=== PATIENT | female | born 1985 | race Caucasian/White ===

== ENCOUNTER 2017-03-17 18:11 | Emergency (ER) | payer OTHER ==
[~2017-03-17] VITALS: Ht 165.1 cm; Wt 117.2 kg
[2017-03-17 18:15] VITALS: TEMP 36.6; Ht 165.1 cm; Wt 117.2 kg
[2017-03-17] MEDS ORDERED: MoRPHine SULFATE 10 MG/ML CARP/VIAL IV STA (18:27)
[2017-03-17] MEDS ORDERED: ONDANSETRON INJ 2 MG/ML 2 ML VIAL IV STA (18:27)
[2017-03-17] MEDS ORDERED: SODIUM CHLORIDE 0.9% 1000ML 1,000 ML IV ONE (18:30)
[2017-03-17] MEDS ORDERED: BUPRTAB PO (18:48)
[2017-03-17 19:21] LABS: INR 0.9 (0.9-1.1); PARTIAL THROMBOPLASTIN RATIO 1.1
[2017-03-17 19:24] LABS: BASO % 0.5 %; BASO ABS # 0.04 K/uL (0-0.2); COMPLETE YES; EOS % 2.2 %; IG% 0.1 %; LYMPH % 28.2 %; LYMPH ABS # 2.22 K/uL (1.2-3.4); MEAN CELL VOLUME 85.2 fL (80-100); MEAN CORPUSCULAR HEMOGLOBIN 28.4 pg (25-34); MEAN CORPUSCULAR HGB CONC 33.3 g/dl (32-36); MEAN PLATELET VOLUME 10.8 fL (7.4-10.4); MONO % 5.7 %; NEUT % 63.3 %; PLATELET COUNT 212 K/uL (130-400); RED BLOOD COUNT 4.58 M/uL (4.2-5.4); WHITE BLOOD COUNT 7.88 K/uL (4.8-10.8)
[2017-03-17 19:35] LABS: BUN/CREATININE RATIO 11.6 (10-20); CALCIUM 9.1 mg/dl (8.5-10.1); CREATININE 0.7 mg/dl (0.60-1.20); MAGNESIUM 2.2 mg/dl (1.8-2.4); POTASSIUM 3.7 mmol/L (3.5-5.1)
[2017-03-17 19:36] LABS: URINE APPEARANCE CLEAR (CLEAR); URINE BILIRUBIN NEG (NEG); URINE COLOR YELLOW; URINE NITRITE NEG (NEG); URINE PH 6.5 (4.5-7.5); URINE SPECIFIC GRAVITY 1.022 (1.000-1.030); UROBILINOGEN NEG (NEG); ZZUR CULT IF INDIC CLEAN CATCH NO
[2017-03-17 19:37] LABS: MANUAL MICROSCOPIC REQUIRED? NO; REVIEW REQ? NO
--- NOTE | 2017-03-17 19:37 | DIAGNOSTIC IMAGING REPORT ---
HEAD CT NONCONTRAST CT DOSE: 537.48 mGy.cm HISTORY: Worst headache of life TECHNIQUE: Multiaxial CT images of the head were performed without the use of intravenous contrast. Comparison: None. Findings: Mild mucosal thickening of the sphenoid sinuses. Minimal mucosal thickening of the maxillary and ethmoid sinuses. The calvarium and skull base are intact. The ventricles and sulci are within normal limits. There is no mass, hematoma, midline shift, or acute infarct. Impression: Mild chronic sinus change. Negative brain. Electronically signed by: Moe Delgadillo M.D. 03/17/2017 7:36 PM Dictated Date/Time: 03/17/2017 7:35 PM
[2017-03-17 19:46] LABS: THYROID STIMULATING HORMONE 0.476 uIu/ml (0.300-4.500)
[2017-03-17 20:42] LABS: LYME DISEASE AB IGG NEG (NEG); LYME DISEASE AB IGM NEG (NEG)
[2017-03-17] MEDS ORDERED: HYDROmorphone INJ 1 MG/ML SYR IV STA (20:56)
[2017-03-17] MEDS ORDERED: ONDANSETRON HOME PACK 4MG OD TAB PO ONE (21:30)
[2017-03-17] MEDS ORDERED: OXYCODONE IR HOME PACK PO ONE (21:30)
[2017-03-17 21:48] VITALS: BP 146/95; PULSE 80; O2SAT 97
--- NOTE | 2017-03-18 18:58 | EMERGENCY ROOM VISIT NOTE ---
History First contact with patient: 18:17 Chief Complaint: HEADACHE Stated Complaint: SEVERE HEADACHE, DIZZINESS, NAUSEA History of Present Illness The patient is a 31 year old female who presents to the Emergency Room with complaints of slowly worsening headache with dizziness and nausea over the past 36 hours. The patient states she has a history of headaches, but she has not had one to this extent in the past. She does not follow with neurology, and her symptoms usually improve with [id number] Excedrin Migraine. She attempted this without relief. She states that her headache began after intercourse yesterday, and has slowly progressed. She was able to get some sleep last night. The patient does not have neck pain or vision changes. No fevers or chills. No injury or trauma. The patient rates her current discomfort an 8/10. She is not photophobic. No aura. She does not take blood thinners or aspirin on a regular basis. Review of Systems More than 10 systems were reviewed and otherwise negative with the exception of history of present illness. Past Medical/Surgical History No chronic medical disease Family History No pertinent family history Social History Housing Status: lives with family Current/Historical Medications Scheduled Bupropion Hcl (Wellbutrin Xl), 150 MG PO DAILY Allergies Coded Allergies: No Known Allergies (Unverified , 03/17/17) Physical Exam Vital Signs Date Time Temp Pulse Resp B/P (MAP) Pulse Ox O2 Delivery O2 Flow Rate FiO2 03/17/17 21:48 80 16 146/95 97 Room Air 03/17/17 20:00 72 17 128/82 99 Room Air 03/17/17 18:15 36.6 85 18 197/129 97 Room Air Pain Rating (0-10): 3.0 Physical Exam VITALS: Vitals are noted on the nurse's note and reviewed by myself. Vital signs stable. GENERAL: Well-developed, well-nourished, white female, who is in no acute distress and resting comfortably. Patient is cooperative with the examination. HEAD: Normocephalic atraumatic. NECK: Supple without nuchal rigidity. No lymphadenopathy. No thyromegaly. Cervical spine is nontender. No meningismus HEART: Regular rate and rhythm without murmurs gallops or rubs. LUNGS: Clear to auscultation bilaterally without wheezes, rales or rhonchi. No retractions or accessory muscle use. ABDOMEN: Positive normal bowel sounds x 4. Soft, nontender, without masses or organomegaly. No guarding or rebound tenderness. MUSCULOSKELETAL: No muscle atrophy, erythema, or edema noted. Full range of motion without joint tenderness in all extremities. No tenderness to palpation. Normal gait. Strength 5/5 throughout. NEURO: Patient was alert and oriented to person place and time. CN II through XII grossly intact. Deep tendon reflexes 2+ throughout. No focal neurological deficits SKIN: The skin was without rashes, erythema, edema, or bruising. Capillary reflex less than 2 seconds. Medical Decision & Procedures ER Provider Diagnostic Interpretation: HEAD CT NONCONTRAST CT DOSE: 537.48 mGy.cm HISTORY: Worst headache of life TECHNIQUE: Multiaxial CT images of the head were performed without the use of intravenous contrast. Comparison: None. Findings: Mild mucosal thickening of the sphenoid sinuses. Minimal mucosal thickening of the maxillary and ethmoid sinuses. The calvarium and skull base are intact. The ventricles and sulci are within normal limits. There is no mass, hematoma, midline shift, or acute infarct. Impression: Mild chronic sinus change. Negative brain. Laboratory Results 03/17/17 18:50 Red Blood Count 4.58, Mean Corpuscular Volume 85.2, Mean Corpuscular Hemoglobin 28.4, Mean Corpuscular Hemoglobin Concent 33.3, Mean Platelet Volume 10.8, Neutrophils (%) (Auto) 63.3, Lymphocytes (%) (Auto) 28.2, Monocytes (%) (Auto) 5.7, Eosinophils (%) (Auto) 2.2, Basophils (%) (Auto) 0.5, Neutrophils # (Auto) 4.99, Lymphocytes # (Auto) 2.22, Monocytes # (Auto) 0.45, Eosinophils # (Auto) 0.17, Basophils # (Auto) 0.04 03/17/17 18:50 Test 03/17/17 18:50 White Blood Count 7.88 K/uL (4.8-10.8) Red Blood Count 4.58 M/uL (4.2-5.4) Hemoglobin 13.0 g/dL (12.0-16.0) Hematocrit 39.0 % (37-47) Mean Corpuscular Volume 85.2 fL (80-100) Mean Corpuscular Hemoglobin 28.4 pg (25-34) Mean Corpuscular Hemoglobin Concent 33.3 g/dl (32-36) Platelet Count 212 K/uL (130-400) Mean Platelet Volume 10.8 fL (7.4-10.4) Neutrophils (%) (Auto) 63.3 % Lymphocytes (%) (Auto) 28.2 % Monocytes (%) (Auto) 5.7 % Eosinophils (%) (Auto) 2.2 % Basophils (%) (Auto) 0.5 % Neutrophils # (Auto) 4.99 K/uL (1.4-6.5) Lymphocytes # (Auto) 2.22 K/uL (1.2-3.4) Monocytes # (Auto) 0.45 K/uL (0.11-0.59) Eosinophils # (Auto) 0.17 K/uL (0-0.5) Basophils # (Auto) 0.04 K/uL (0-0.2) RDW Standard Deviation 40.8 fL (36.4-46.3) RDW Coefficient of Variation 13.2 % (11.5-14.5) Immature Granulocyte % (Auto) 0.1 % Immature Granulocyte # (Auto) 0.01 K/uL (0.00-0.02) Prothrombin Time 10.0 SECONDS (9.0-12.0) Prothromb Time International Ratio 0.9 (0.9-1.1) Activated Partial Thromboplast Time 27.3 SECONDS (21.0-31.0) Partial Thromboplastin Ratio 1.1 Urine Color YELLOW Urine Appearance CLEAR (CLEAR) Urine pH 6.5 (4.5-7.5) Urine Specific [place] 1.022 (1.000-1.030) Urine Protein NEG (NEG) Urine Glucose (UA) NEG (NEG) Urine Ketones TRACE (NEG) Urine Occult Blood NEG (NEG) Urine Nitrite NEG (NEG) Urine Bilirubin NEG (NEG) Urine Urobilinogen NEG (NEG) Urine Leukocyte Esterase NEG (NEG) Urine Test NEG (NEG) Anion Gap 8.0 mmol/L (3-11) Est Creatinine Clear Calc Drug Dose 151.8 ml/min Estimated GFR () 135.7 Estimated GFR (Non- 117.1 BUN/Creatinine Ratio 11.6 (10-20) Calcium Level 9.1 mg/dl (8.5-10.1) Magnesium Level 2.2 mg/dl (1.8-2.4) Total Bilirubin 0.4 mg/dl (0.2-1) Aspartate Amino Transf (AST/SGOT) 17 U/L (15-37) Alanine Aminotransferase (ALT/SGPT) 26 U/L (12-78) Alkaline Phosphatase 84 U/L (45-117) Total Protein 7.9 gm/dl (6.4-8.2) Albumin 4.0 gm/dl (3.4-5.0) Globulin 3.9 gm/dl (2.5-4.0) Albumin/Globulin Ratio 1.0 (0.9-2) Thyroid Stimulating Hormone (TSH) 0.476 uIu/ml (0.300-4.500) Lyme Disease IgG Antibody NEG (NEG) Lyme Disease IgM Antibody NEG (NEG) Medications Administered Medications (Trade) Dose Ordered Sig/[place] Route Start Time Stop Time Status Last Admin Dose Admin Sodium Chloride 1,000 ml @ 999 mls/hr Q1H1M ONCE IV 03/17/17 18:30 03/17/17 19:30 DC 03/17/17 18:57 999 MLS/HR Morphine Sulfate (MoRPHine SULFATE INJ) 8 mg NOW STAT IV 03/17/17 18:27 03/17/17 18:29 DC 03/17/17 18:57 8 MG Ondansetron HCl (Zofran Inj) 4 mg NOW STAT IV 03/17/17 18:27 03/17/17 18:30 DC 03/17/17 18:57 4 MG Hydromorphone HCl (Dilaudid Inj) 1 mg NOW STAT IV 03/17/17 20:56 03/17/17 20:57 DC 03/17/17 21:01 1 MG Oxycodone HCl (Roxicodone Immediate Rel 5MG Home Pack) 1 homepack UD ONCE PO 03/17/17 21:30 03/17/17 21:31 DC 03/17/17 21:30 1 HOMEPACK Ondansetron HCl (ZOFRAN ODT 4MG Home Pack) 1 homepack UD ONCE PO 03/17/17 21:30 03/17/17 21:31 DC 03/17/17 21:30 1 HOMEPACK ED Course Physical exam and history were performed. Nursing notes and EMR were reviewed. Patient appears to have a slowly worsening migraine headache over the past 36 hours. The patient has a history of headaches in the past, but she states she has not had one this severe previously. She does not have findings consistent with meningitis or encephalitis. IV access was established and labs were obtained. Review of EMR shows the patient has not been seen at this facility previously. She reports no previous imaging of her head. Because of this he CT scan was performed. The patient was hydrated and medicated as above. The patient does not have a significant elevated white blood cell count, gross anemia, bandemia, or significant electrolyte imbalance. TSH shows euthyroid. Lyme is negative. Urine was without obvious infection. Magnesium was normal. The patient CT scan does not show evidence of acute findings. After medication the patient had significant improvement of her symptoms, rating her pain a 3/10. She was able to rest comfortably in her emergency department bed. I did discuss the possibility of needing a lumbar puncture as she is describing this as the worst headache of her life. After thorough education, the patient elected to avoid lumbar puncture at this time as she was improved. Her symptoms are slowly nature and she does have a negative CT scan, and I feel that this is reasonable. I explained that if her symptoms persisted we would certainly be willing to perform this in the near future. Overall the patient appears stable for discharge home. I will give her a home pack of oxycodone to help her for the rest of the day. She will need to follow with her primary care physician for further care and management. She was otherwise invited back to the ER with any new, worsening, or concerning symptoms. The patient voiced understanding of this plan and was discharged home under the care of her who is acting as the forklift driver today. The chart was completed utilizing [employer] Speech Voice Recognition Software. Grammatical errors, random word insertions, pronoun errors, and incomplete sentences are an occasional consequence of this system due to software limitations, ambient noise, and hardware issues. Any formal questions or concerns about the content, text, or information contained within the body of this dictation should be directly addressed to the provider for clarification. . Medical Decision The differential diagnosis includes, but is not limited to: acute intracranial bleed, meningitis, encephalitis, mass or mass effect, sinusitis, infection, tumor, headache, temporal arteritis, dissection, aneurysm, and carbon monoxide exposure, and migraine. Impression Primary Impression: Headache Departure Information Dispostion Home / Self-Care Condition FAIR Referrals Larry Delaney D.O. (PCP) Forms HOME CARE DOCUMENTATION FORM, IMPORTANT VISIT INFORMATION Patient Instructions My [facility] Additional Instructions You were seen and evaluated today on an emergency basis only. This is not a substitute for, or an effort to provide, complete comprehensive medical care. It is not possible to recognize and treat all injuries or illnesses in a single emergency department visit. For this reason it is recommended that you followup with your primary care physician or neurologist this week for ongoing care and evaluation. DO NOT drive, drink alcohol, operate machinery, or perform dangerous activities today. You were given medications in the ER that can affect your ability to safely function or operate a vehicle. Oxycodone (OxyIR) 5mg (homepack): Take ONE pill every SIX hours for breakthrough pain. Avoid alcohol, operating machinery or dangerous equipment, working on ladders or roofs, DRIVING, or situations where being under the influence may be dangerous. It is recommended to use an [id number] stool softener such as Colace, 100mg twice daily while taking this medication to avoid constipation. Zofran 1 tablet every 6 hrs as needed for nausea. Rest today in a quiet, peaceful, dark environment and get a full 8-10 hrs of sleep tonight. Avoid loud noises, smoke/smoking, alcohol, bright lights, stress, or physical exertion today to minimize the chance the headache may return. Continue current medications. Ibuprofen(Motrin, Advil) may be used for fever or pain. Use 600mg every six hours as needed. Take with food. Avoid using more than 2400mg in a 24 hour period. Do not use 2400mg per day for more than three consecutive days without physician direction. Prolonged inappropriate use can lead to stomach upset or ulcers. (AND/OR) Acetaminophen(Tylenol) may be used for fever or pain. Use 1000mg every six hours as needed. Avoid using more than 4000mg in a 24 hour period. Return to the ER for passing out, worsening headache, vision problems, neck stiffness/pain, fevers, vomiting, worsening of your condition, or as needed.
== END 2017-03-17 21:52 | disposition home or self-care (01) ==
LOC: C.EDB 18:12 → C.EDA 21:52
DX: R51 Headache (principal); R42 Dizziness and giddiness

== ENCOUNTER 2025-03-26 13:50 | Observation (INO) ==
--- NOTE | 2025-03-26 14:58 | Emergency Department Note ---
Impression & Plan Atypical chest pain, Upper abdominal pain, History of Irene-en-Y gastric bypass, History of alcohol abuse ED Provider Note Provider: Som Ervin MD CHIEF COMPLAINT: Abdominal pain and vomiting, chest pain shortness of breath, skin discomfort, weakness HISTORY OF PRESENT ILLNESS: Patient is a 39-year-old female reporting history of gastric bypass ~9 years ago at [facility] presenting today stating over last 2 weeks she has not had much of an appetite. Anytime she tries to eat much of anything she gets nauseous and vomits. Maybe a little bit of liquid going down. States some diffuse abdominal discomfort particularly in the upper abdomen towards the left. Developed over the last several days some mid to right upper chest pain rating to the right shoulder and shortness of breath at times. [place] weak and lightheaded this morning but did not syncopized. No significant trauma. This morning also noted that vision in both eyes seems a little bit blurry. States she has a pain discomfort sensation from her chest extending towards her right leg and to her right arm but not her left arm and leg. Not involving the face. No speech issues. Does report she has had histories of alcohol abuse but states she stopped drinking. Has not been able to take her supplements well due to her nausea and vomiting. Zofran at home did help some with the nausea but when the medication wears off nausea returns. States she just feels unwell. No significant sore throat or productive cough or fevers reported. States she did fall several days ago as her left knee gave out on her but denies any significant headache currently. PAST MEDICAL HISTORY: As noted above MEDICATIONS: Reviewed home medications SOCIAL HISTORY: History of alcohol use although states she has stopped (last drink of alcohol this past week), vapes PHYSICAL EXAM: GENERAL: alert and oriented in no acute distress on stretcher mother at bedside Head: normocephalic and atraumatic EYES: No injection, discharge or icterus. PERRL, EOMI. NECK: Trachea midline. Supple. ENT: Mucous membranes pink and moist. LUNGS: Airway patent. No retractions. Breath sounds clear with good air entry bilaterally. HEART: Regular rate and rhythm. No chest wall tenderness ABDOMEN: Soft mild epigastric to left upper quadrant discomfort. SKIN: Acyanotic, warm, dry, without rashes EXTREMITIES: Without swelling, tenderness or deformity NEUROLOGICAL: No focal deficits. No aphasia. No facial droop or slurred speech. Normal strength and tone in the extremities. Sensation to gross touch normal. Ambulatory. EK beats minute normal sinus rhythm. No PVC or PAC. Some nonspecific T wave inversions without acute ST segment elevation or depression QTc 45. CONTINUOUS CARDIAC MONITORING: was ordered and showed a heart rate of 80s to 90s bpm in normal sinus rhythm Patient's laboratory studies and imaging reviewed. Differential includes ACS/cardiac disease, PE, pneumonia, fluid overload, cirrhosis, CVA, meningitis, neuropathy, vitamin deficiency, electrolyte abnormality, appendicitis, ovarian cyst, ovarian torsion, ectopic , infections, diverticulitis, UTI, obstruction, mesenteric ischemia, aortic pathology, inflammatory bowel disease, renal colic, PUD, pancreatitis, biliary pathology, hernia, volvulus, constipation, as well as other pathologies. IMPRESSION/MEDICAL DECISION MAKING: Patient with multiple different complaints. Does not appear in distress and vitals are reassuring here. Certainly concerns given her history of gastric bypass for complication associated with this. Limited records here in chart indicates the patient has followed at [facility] this past year. Case management access to records in the [facility] system. Patient was evidently seen at the emergency department on March 22 there for abdominal pain symptoms more in the lower abdomen. Ultrasound as well as CT imaging with only hepatic steatosis reported. Blood work and D-dimer at that time was reassuring. Given her ongoing symptoms today however we will complete a another CT of her abdomen pelvis as well as complete a CT of her chest to exclude underlying PE or mass given her discomfort in her chest and some shortness of breath. Given that she has some blurry vision although it did not seem focal we will complete a head CT. Bilateral nature does not seem to Primary ophthalmologic issue at this time. No use of contacts or corrective lenses. No other motor weakness or slurred speech appreciable at this time. Low suspicion for CVA. Does not appear meningitic. Given IV fluids, Pepcid, Protonix, Zofran, pain medicine, and thiamine here. Blood work here without any significant anemia or leukocytosis. Borderline hyponatremia 134 and hypokalemia 3.3 with normal renal function creatinine 0.73. Bilirubin elevated 3.2 with an AST of 117 ALT of 41 alkaline phosphatase of 112. Lipase is normal. Negative . B12 level normal. INR 1.2. In comparison to previous blood work from 4 days ago does appear today that AST is improved as well as alkaline phosphatase although total bilirubin has increased from 1.8. Urinalysis without evidence of infection, blood, or significant concentration. CT head and chest without significant acute pathology per radiology. CT abdomen pelvis shows hepatic steatosis with maybe some colitis. Patient still with ongoing nausea and abdominal discomfort after several doses of morphine and a dose of Zofran. Vision is improved. Discussed with patient and mother the findings. Patient states she did have an EGD done beginning of January that did show an ulceration but no active bleeding. Has been taken Protonix by her report. No bloody vomiting or diarrhea reported. Unsure if some of her chest discomfort to upper abdomen may be related to developing esophagitis or other marginal ulceration. Likely no evidence of perforation on imaging. Discussed with her and mother options. Given her significant pain and nausea still further discussion feel it is reasonable to bring her in for observation and possible further GI workup. Colitis findings on abdominal CT no correlate with any diarrheal symptoms the patient's having. Review of records from outside facility on March 22 had imaging also questioning possible colitis but patient does not have a history of IBD and possibly a normal variant. At this point again after discussion we will bring her in for further observation and the hospitalist was contacted. DIAGNOSIS: Chest pain, abdominal pain, nausea and vomiting, history of gastric bypass DISPOSITION: Hospitalist will evaluate Patient was agreeable with this plan. Past Med/Surg History Problem List (Updated 03/26/25 @ 21:24 by Som Ervin M.D.) History of alcohol abuse (Acute) History of Irene-en-Y gastric bypass (Acute) Upper abdominal pain (Acute) Atypical chest pain (Acute) Headache (Acute) Medical History No significant past medical history Surgical History Hx of gastric bypass Family History Other No significant family history Social History Smoking Status: Current every day smoker Preferred Language: Korean Feels Safe at Home: Yes Allergies Allergies Allergy/AdvReac Type Severity Reaction Status Date / Time metoclopramide [From Reglan] AdvReac Intermediate panic Unverified 11/22/24 16:25 attacks Home Meds Home Medications Medication Instructions Recorded Confirmed multivitamin 1 tab PO DAILY 06/03/18 03/26/25 alprazolam 0.25 mg tablet 0.25 mg PO DAILY PRN Other 11/22/24 03/26/25 furosemide 20 mg tablet 20 mg PO DAILY PRN Fluid Retention 11/22/24 03/26/25 metoprolol succinate 25 mg 25 mg PO DAILY 11/22/24 03/26/25 tablet,extended release 24 hr pantoprazole 20 mg tablet,delayed 20 mg PO DAILY 11/22/24 03/26/25 release sucralfate 1 gram tablet 1 g PO TID 11/22/24 03/26/25 Previous Rx's Medication Instructions Recorded lidocaine 5 % topical patch 1 patch topical DAILY PRN pain #15 11/22/24 ea Results & Data (ED) Vital Signs Vital Signs - 24 hr 03/26/25 13:52 03/26/25 14:28 03/26/25 15:21 Temperature 36.8 C Temperature Source Temporal Artery Scan Pulse Rate 103 H 79 84 Pulse Rate [Apical] Pulse Rate [Finger] Pulse Rhythm [Finger] Pulse Strength [Finger] Respiratory Rate 20 Respiratory Effort / Characteristics Non-Labored Spontaneous Respiratory Depth Normal Respiratory Pattern Blood Pressure 123/79 Blood Pressure [Left Arm] Blood Pressure Mean 93 Blood Pressure Mean [Left Arm] Blood Pressure Position [Left Arm] Pulse Oximetry 100 100 Oxygen Delivery Method Room Air Room Air Sepsis Recent Fever Within 48 Hours No Sepsis New/Unexplained Change in Mental Status N/A Sepsis Action Taken by Nursing No Action Required 03/26/25 15:21 03/26/25 17:04 03/26/25 18:23 Temperature Temperature Source Pulse Rate 73 Pulse Rate [Apical] Pulse Rate [Finger] 86 69 Pulse Rhythm [Finger] Regular Pulse Strength [Finger] Normal Respiratory Rate 18 16 Respiratory Effort / Characteristics Non-Labored Spontaneous Non-Labored Spontaneous Respiratory Depth Normal Normal Respiratory Pattern Blood Pressure Blood Pressure [Left Arm] 115/78 113/88 Blood Pressure Mean Blood Pressure Mean [Left Arm] 90 96 Blood Pressure Position [Left Arm] Pulse Oximetry 100 100 Oxygen Delivery Method Room Air Room Air Sepsis Recent Fever Within 48 Hours Sepsis New/Unexplained Change in Mental Status Sepsis Action Taken by Nursing 03/26/25 19:00 03/26/25 21:00 Temperature Temperature Source Pulse Rate Pulse Rate [Apical] 86 76 Pulse Rate [Finger] Pulse Rhythm [Finger] Pulse Strength [Finger] Respiratory Rate 16 16 Respiratory Effort / Characteristics Non-Labored Spontaneous Non-Labored Spontaneous Respiratory Depth Normal Normal Respiratory Pattern Regular Regular Blood Pressure Blood Pressure [Left Arm] 107/66 114/72 Blood Pressure Mean Blood Pressure Mean [Left Arm] 79 86 Blood Pressure Position [Left Arm] Semi-fowlers Pulse Oximetry 98 94 Oxygen Delivery Method Room Air Room Air Sepsis Recent Fever Within 48 Hours Sepsis New/Unexplained Change in Mental Status Sepsis Action Taken by Nursing Laboratory Data 03/26/25 14:06 03/26/25 14:06 Lab Results 03/26/25 03/26/25 Range/Units 14: 16:42 WBC 9.60 (4.8-10.8) K/ul RBC 3.38 L (4.20-5.40) M/uL Hgb 12.1 (12.0-16.0) g/dl Hct 34.9 L (37.0-47.0) % MCV 103.3 H (80.0-100.0) fL MCH 35.8 H (25.0-34.0) pg MCHC 34.7 (32.0-36.0) g/dL RDW Std Deviation 63.0 H (36.4-46.3) fL RDW Coeff of Romain 16.5 H (11.5-14.5) % Plt Count 149 (130-400) K/uL MPV 10.8 (9.4-12.4) fL Immature Gran % (Auto) 0.2 % Neut % (Auto) 74.7 % Lymph % (Auto) 16.4 % [place] % (Auto) 7.9 % Eos % (Auto) 0.3 % Baso % (Auto) 0.5 % Neut # (Auto) 7.17 H (1.40-6.50) K/uL Lymph # (Auto) 1.57 (1.20-3.40) K/uL [place] # (Auto) 0.76 H (0.11-0.59) K/uL Eos # (Auto) 0.03 (0.00-0.50) K/uL Baso # (Auto) 0.05 (0.00-0.20) K/uL Immature Gran # (Auto) 0.02 (0.01-0.20) K/uL PT 12.8 H (9.0-12.0) Seconds INR 1.2 H (0.9-1.1) Sodium 134 L (136-145) mmol/L Potassium 3.3 L (3.5-5.1) mmol/L Chloride 96 L (98-107) mmol/L Carbon Dioxide 26 (21-32) mmol/L Anion Gap 12 H (3-11) BUN 6 (6-23) mg/dl Creatinine 0.73 (0.6-1.2) mg/dl Est Cr Clr Drug Dosing 111.1 ml/min eGFR 108.56 BUN/Creatinine Ratio 8.2 L (10-20) Glucose 122 H (70-99(Fasting)) mg/dl Calcium 8.7 (8.6-10.3) mg/dl Magnesium 2.0 (1.7-2.4) mg/dl Total Bilirubin 3.2 H (0.2-1.0) mg/dl AST 117 H (13-39) U/L ALT 41 (7-52) U/L Alkaline Phosphatase 112 H (34-104) U/L Troponin I High Sens 4.3 (0-14) pg/ml Total Protein 6.4 (6.0-8.3) gm/dl Albumin 2.7 L (3.4-5.0) gm/dl Globulin 3.7 (2.5-4.0) gm/dl Albumin/Globulin Ratio 0.7 L (0.9-2) Lipase 41 (11-82) U/L Vitamin B12 887 (180-914) pg/ml HCG, Qual Negative (Negative) Urine Color Dark Yellow Urine Appearance Clear (Clear) Urine pH 7.0 (4.5-7.5) Ur Specific [place] 1.009 (1.000-1.030) Urine Protein Negative (Negative) Urine Glucose (UA) Negative (Negative) Urine Ketones Negative (Negative) Urine Blood Negative (Negative) Urine Nitrite Negative (Negative) Urine Bilirubin 1+ H (Negative) Urine Urobilinogen Negative (Negative) Ur Leukocyte Esterase Trace H (Negative) Urine WBC (Auto) 0-5 (0-5) /hpf Urine RBC (Auto) 0-2 (0-2) /hpf U Hyaline Cast (Auto) 0-2 (0-2) /lpf U Epithel Cells (Auto) 0-2 (0-2) /hpf Urine Bacteria (Auto) None Seen (None Seen) Urine Comment Administered Medications Discontinued Medications Hydromorphone HCl (Hydromorphone Inj 0.5 Mg/0.5 Ml Syr) 0.5 mg IV NOW STA Stop: 03/26/25 19:07 Last Admin: 03/26/25 19:35 Dose: 0.5 mg Documented By: EDWARD Sodium Chloride (Nss) 1,000 mls @ 999 mls/hr IV .Q1H1M STA Stop: 03/26/25 15:53 Last Infusion: 03/26/25 17:28 Dose: Infused Documented By: Admin: 03/26/25 15:22 Dose: 999 mls/hr Documented By: MARLINE Thiamine HCl 100 mg/ Syringe 10 mls @ 2 mls/min IV NOW STA Stop: 03/26/25 14:58 Last Admin: 03/26/25 15:33 Dose: 2 mls/min Documented By: MARLINE Famotidine (Pepcid 20mg Iv Push) 20 mg in 5 mls @ 2.5 mls/min IV NOW STA Stop: 03/26/25 14:55 Last Admin: 03/26/25 15:30 Dose: 2.5 mls/min Documented By: MARLINE Pantoprazole Sodium (Protonix) 40 mg in 10 mls @ 5 mls/min IV NOW ONE Stop: 03/26/25 14:55 Last Admin: 03/26/25 15:28 Dose: 5 mls/min Documented By: MARLINE Ioversol (Optiray 320 125ml) 115 ml IV ONCE ONE Stop: 03/26/25 16:25 Last Admin: 03/26/25 16:24 Dose: 115 ml Documented By: MICHAEL Morphine Sulfate (Morphine Sulfate 4 Mg/Ml 1 Ml Carp\Vial) 4 mg IV NOW STA Stop: 03/26/25 14:54 Last Admin: 03/26/25 15:25 Dose: 4 mg Documented By: MARLINE Morphine Sulfate (Morphine Sulfate 4 Mg/Ml 1 Ml Carp\Vial) 4 mg IV NOW STA Stop: 03/26/25 16:59 Last Admin: 03/26/25 17:07 Dose: 4 mg Documented By: MARLINE Ondansetron HCl (Ondansetron Inj 2 Mg/Ml 2 Ml Vial) 4 mg IV NOW STA Stop: 03/26/25 14:54 Last Admin: 03/26/25 15:24 Dose: 4 mg Documented By: MARLINE Ondansetron HCl (Ondansetron Inj 2 Mg/Ml 2 Ml Vial) 4 mg IV NOW STA Stop: 03/26/25 19:07 Last Admin: 03/26/25 19:32 Dose: 4 mg Documented By: EMB Imaging Data Radiologist's Impression: Abdomen/Pelvis CT 03/26/25 14:53 EXAMINATION: CT of the abdomen and pelvis performed after the administration of IV contrast. TECHNIQUE: Helical CT images from the lung bases through the symphysis pubis were obtained with contrast. Coronal and sagittal reformatted images were generated at a workstation for further assessment. Dose reduction techniques were achieved by using automatic exposure control and/or adjustment of mA and/or kV according to patient size and/or use of iterative reconstruction technique. HISTORY: Pulmonary embolism. Chest pain and abdominal pain. COMPARISON: June 03, 2018. 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 Lung windows demonstrate clear included pulmonary bases. Soft tissue windows demonstrate slight heterogeneous but predominantly decreased attenuation of the liver. No appreciated mass or ductal dilatation. Cholecystectomy changes. Radiopaque staple line consistent with gastric bypass changes. No appreciated complication at these levels. Likely physiologic cyst right ovary. Mild air stool levels large bowel. Radiopaque density within the proximal descending large bowel likely representing residual radiopaque medicinal debris. Decreased attenuation submucosal region of the proximal large bowel. This is decompressed. Submucosal edema not excluded. No discrete mass or obstruction. Appendix is within normal limits. Nonspecific prominent gas distended loops of small bowel. Suspect transient process. Remaining solid and hollow organs of the abdomen and pelvis are within normal limits. No free air or free fluid. Bone windows demonstrate no acute osseous process. IMPRESSION: 1. Findings worrisome for proximal colitis. Etiology uncertain. No discrete mass or obstruction. 2. Uncomplicated appearing gastric bypass changes. 3. Question diffuse liver steatosis. Please see above for details. Electronically signed by Navi Rooney 03-26-2025 5:43 PM Chest CTA 03/26/25 14:53 Exam: CT angiogram chest with pulmonary embolus protocol Reason for exam: Pulmonary embolus with chest pain and abdominal pain Previous studies: Chest radiograph 11/22/2024 FINDINGS: There is good opacification of the pulmonary arteries. Persistent filling defect to indicate embolus is seen on either side at this time. Aorta shows minimal atherosclerotic plaquing without the evidence suggesting dissection or significant aneurysm at the examined levels. No significant coronary artery calcification seen at this time. No mediastinal mass or adenopathy. Visualized lung zones show some minor linear atelectasis/fibrosis in the right middle lobe but are otherwise free of active infiltrate or edema. No pleural effusion or pneumothorax is noted. There is diffuse fatty infiltrate in the liver which is enlarged. Clips from cholecystectomy are noted. IMPRESSION: 1. Negative for pulmonary embolus. 2. Negative for aortic dissection or aneurysm. 3. Essentially clear lung zones. 4. Hepatomegaly with diffuse fatty infiltration in the liver. Electronically signed by Larry Junior 03-26-2025 6:[address] 03/26/25 14:53 Exam: CT head brain without contrast Reason for exam: Vision changes Comparison studies: 03/17/2017 FINDINGS: No intracranial mass, hemorrhage or edema is evident at this time. No midline shift, ventriculomegaly or extra-axial blood/fluid collection is seen. The mastoids and visualized paranasal sinuses show small retention cyst in the right aspect of the sphenoid bone are otherwise clear. This was also present on the previous study. Bony calvarium otherwise intact. IMPRESSION: 1. Negative for active intracranial abnormality on unenhanced head CT study. 2. Retention cyst sphenoid sinus. Electronically signed by Larry Junior 03-26-2025 6:36 PM Discharge Plan Visit Data Chief Complaint: Chest Pain Stated Complaint: CAN'T EAT FOR 2 WEEKS,CHEST PAIN SOB,VISION ED Provider: Som Ervin Discharge Problem: Atypical chest pain, Upper abdominal pain, History of Irene-en-Y gastric bypass, History of alcohol abuse Patient Disposition: Being Evaluated by Hospitalist Condition: Fair Forms Stand Alone Forms: My [facility] Prescriptions Prescriptions: No Action multivitamin Tablet 1 tab PO DAILY sucralfate 1 gram tablet 1 g PO TID pantoprazole 20 mg tablet,delayed release (DR/EC) 20 mg PO DAILY alprazolam 0.25 mg tablet 0.25 mg PO DAILY PRN (Reason: Other) furosemide 20 mg tablet 20 mg PO DAILY PRN (Reason: Fluid Retention) metoprolol succinate 25 mg tablet extended release 24 hr 25 mg PO DAILY lidocaine 5 % adhesive patch,medicated 1 patch TOP DAILY PRN (Reason: pain) Qty: 15 0RF Rx Instructions: leave on most painful area for 12 hrs Referrals Referrals: Brigitte Monteiro PA-C [Primary Care Provider] -
[2025-03-26 15:07] LABS: Hematocrit (blood only) 34.9 % (37.0-47.0); Hemoglobin 12.1 g/dl (12.0-16.0); Immature Granulocytes # (auto) 0.02 K/uL (0.01-0.20); Immature Granulocytes % (auto) 0.2 %; Mean Corpuscular Hemoglobin 35.8 pg (25.0-34.0); Mean Corpuscular Volume 103.3 fL (80.0-100.0); Platelet Count 149 K/uL (130-400); RDW Standard Deviation 63.0 fL (36.4-46.3); Red Blood Count 3.38 M/uL (4.20-5.40); White Blood Count 9.60 K/ul (4.8-10.8)
[2025-03-26 15:19] LABS: Pregnancy Test, Serum Negative (Negative)
[2025-03-26] MEDS: SODIUM CHLORIDE 0.9% 1,000 ML IV STA (15:22)
[2025-03-26] MEDS: ONDANSETRON INJ 2 MG/ML 2 ML VIAL IV STA ×2 (15:24→19:32)
[2025-03-26] MEDS: MoRPHine SULFATE 4 MG/ML 1 ML CARP\\VIAL IV STA ×2 (15:25→17:07)
[2025-03-26] MEDS: PANTOprazole 40 MG/10 ML SYR IV ONE (15:28)
[2025-03-26] MEDS: FAMOTIDINE 20MG IV PUSH 20 MG/5 ML SYR IV STA (15:30)
[2025-03-26] MEDS: THIAMINE HCL 100 MG in SYRINGE 9 ML IV STA (15:33)
[2025-03-26 15:41] LABS: INR 1.2 (0.9-1.1); Prothrombin Time 12.8 Seconds (9.0-12.0)
[2025-03-26 15:43] LABS: Anion Gap 12.0 (3-11); Bilirubin,Total 3.2 mg/dl (0.2-1.0); Calcium 8.7 mg/dl (8.6-10.3); Carbon Dioxide 26.0 mmol/L (21-32); Chloride 96.0 mmol/L (98-107); Magnesium 2.0 mg/dl (1.7-2.4); Potassium 3.3 mmol/L (3.5-5.1); Sodium 134.0 mmol/L (136-145)
[2025-03-26 15:49] LABS: Alanine Aminotransferase 41.0 U/L (7-52); Albumin Globulin Ratio 0.7 (0.9-2); Alkaline Phosphatase 112.0 U/L (34-104); Blood Urea Nitrogen 6.0 mg/dl (6-23); Creatinine Clr Calc Pharmacy 111.1 ml/min; Globulin 3.7 gm/dl (2.5-4.0); Glucose 122.0 mg/dl (70-99(Fasting)); Lipase 41.0 U/L (11-82); Total Protein 6.4 gm/dl (6.0-8.3)
[2025-03-26] MEDS: OPTIRAY 320 125ml IV ONE (16:24)
[2025-03-26 17:06] LABS: Appearance Urine Clear (Clear); Bacteria Urine Automated None Seen (None Seen); Cast Urine Automated 0-2 /lpf (0-2); Epithelial Cell Urine Auto 0-2 /hpf (0-2); Glucose Urine UA Negative (Negative); RBC Urine Automated 0-2 /hpf (0-2); WBC Urine Automated 0-5 /hpf (0-5)
--- NOTE | 2025-03-26 17:43 | CT Scan Report ---
EXAMINATION: CT of the abdomen and pelvis performed after the administration of IV contrast. TECHNIQUE: Helical CT images from the lung bases through the symphysis pubis were obtained with contrast. Coronal and sagittal reformatted images were generated at a workstation for further assessment. Dose reduction techniques were achieved by using automatic exposure control and/or adjustment of mA and/or kV according to patient size and/or use of iterative reconstruction technique. HISTORY: Pulmonary embolism. Chest pain and abdominal pain. COMPARISON: June 03, 2018. 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 Lung windows demonstrate clear included pulmonary bases. Soft tissue windows demonstrate slight heterogeneous but predominantly decreased attenuation of the liver. No appreciated mass or ductal dilatation. Cholecystectomy changes. Radiopaque staple line consistent with gastric bypass changes. No appreciated complication at these levels. Likely physiologic cyst right ovary. Mild air stool levels large bowel. Radiopaque density within the proximal descending large bowel likely representing residual radiopaque medicinal debris. Decreased attenuation submucosal region of the proximal large bowel. This is decompressed. Submucosal edema not excluded. No discrete mass or obstruction. Appendix is within normal limits. Nonspecific prominent gas distended loops of small bowel. Suspect transient process. Remaining solid and hollow organs of the abdomen and pelvis are within normal limits. No free air or free fluid. Bone windows demonstrate no acute osseous process. IMPRESSION: 1. Findings worrisome for proximal colitis. Etiology uncertain. No discrete mass or obstruction. 2. Uncomplicated appearing gastric bypass changes. 3. Question diffuse liver steatosis. Please see above for details. Electronically signed by Navi Rooney 03-26-2025 5:43 PM
--- NOTE | 2025-03-26 18:36 | CT Scan Report ---
Exam: CT head brain without contrast Reason for exam: Vision changes Comparison studies: 03/17/2017 FINDINGS: No intracranial mass, hemorrhage or edema is evident at this time. No midline shift, ventriculomegaly or extra-axial blood/fluid collection is seen. The mastoids and visualized paranasal sinuses show small retention cyst in the right aspect of the sphenoid bone are otherwise clear. This was also present on the previous study. Bony calvarium otherwise intact. IMPRESSION: 1. Negative for active intracranial abnormality on unenhanced head CT study. 2. Retention cyst sphenoid sinus. Electronically signed by Larry Junior 03-26-2025 6:36 PM
--- NOTE | 2025-03-26 18:41 | CT Scan Report ---
Exam: CT angiogram chest with pulmonary embolus protocol Reason for exam: Pulmonary embolus with chest pain and abdominal pain Previous studies: Chest radiograph 11/22/2024 FINDINGS: There is good opacification of the pulmonary arteries. Persistent filling defect to indicate embolus is seen on either side at this time. Aorta shows minimal atherosclerotic plaquing without the evidence suggesting dissection or significant aneurysm at the examined levels. No significant coronary artery calcification seen at this time. No mediastinal mass or adenopathy. Visualized lung zones show some minor linear atelectasis/fibrosis in the right middle lobe but are otherwise free of active infiltrate or edema. No pleural effusion or pneumothorax is noted. There is diffuse fatty infiltrate in the liver which is enlarged. Clips from cholecystectomy are noted. IMPRESSION: 1. Negative for pulmonary embolus. 2. Negative for aortic dissection or aneurysm. 3. Essentially clear lung zones. 4. Hepatomegaly with diffuse fatty infiltration in the liver. Electronically signed by Larry Junior 03-26-2025 6:41 PM
--- NOTE | 2025-03-26 19:15 | Electrocardiogram Report ---
Test Reason : Blood Pressure : */* mmHG Vent. Rate : 94 BPM Atrial Rate : 94 BPM P-R Int : 126 ms QRS Dur : 76 ms QT Int : 388 ms P-R-T Axes : 46 2 14 degrees QTcB Int : 485 ms Normal sinus rhythm Nonspecific T wave abnormality Abnormal ECG When compared with ECG of 22-Nov-2024 14:00, Vent. rate has increased by 35 bpm T wave inversion now evident in Anterior leads Confirmed by Mike Holt ([id number]) on 03/26/2025 7:15:27 PM Referred By: REFERRED SELF Confirmed By: Mike Holt
[2025-03-26] MEDS: HYDROmorphone INJ 0.5 MG/0.5 ML SYR IV STA ×2 (19:35→22:42)
--- NOTE | 2025-03-26 21:45 | History & Physical Report ---
Date of Service March 26, 2025 Assessment & Plan (1) Nausea & vomiting: Plan: 39-year-old female with past medical history significant for polycystic ovaries, hypertension, GERD, iron deficiency anemia, depression with anxiety, history of Irene-en-Y gastric bypass, anastomotic ulcer status post gastric bypass presents with nausea vomiting and abdominal pain. Patient states since about last 2 weeks she is having a lot of nausea and vomiting not able to keep anything down. Sometimes even could not keep her liquids down. Had some loose stools. Not micturating much because of not eating much. And couple of days ago start developing severe abdominal pain. She was in the [place] [facility] on 03/22/2025 where her LFTs were elevated at AST 176, ALT 59. And she also drinks alcohol. Total bilirubin was 1.8. CT abdomen pelvis with contrast and ultrasound was done. Ultrasound revealed hepatic steatosis with hepatomegaly. CT scan read as possible sequelae of Crohn's disease but patient did not had any history of Crohn's disease. [place] [facility] advised to stop drinking alcohol and to follow-up with GI. Her symptoms were not getting better. Today she was also developed some chest pain. Some tingliness in the middle of the chest going down into the torso and right leg which prompted her come to the ER. Also has weakness in legs. Has some dizziness. No headache. Has some sinus issues. Has some cough from sinuses. Sometimes getting short of breath. Currently resting comfortably and hemodynamics are okay.Patient says she is to drink 6-8 beers daily but stopped drinking about a week ago and is not having any withdrawal symptoms Nausea and vomiting Going for last 2 weeks Abdominal pain for last 2 days Total bilirubin 3.2. AST 117. ALT 41. Alkaline phos 112. CT abdomen pelvis worrisome for proximal colitis Will keep her n.p.o. Check stool studies IV fluids. IV Protonix Pain control Consult GI in a.m. for further recommendation Chest pain Initial troponin EKG okay CTA chest okay We will follow serial enzymes and echo If any concerns will consult cardiology Tingliness weakness CT head is okay Vitamin B12 okay We will monitor Hypokalemia Replace Alcoholism says quit about a week ago. Counseling Thiamine, folic acid and multivitamin Monitor for withdrawal GERD Continue sucralfate Currently on IV Protonix History of depression anxiety On Ativan as needed Hypertension Metoprolol succinate Gastric bypass surgery Needs follow-up DVT prophylaxis SCDs for now Disposition Med/telemetry Full code. History of Present Illness Chief Complaint: Nausea vomiting, abdominal pain and chest pain Primary Care Provider: Brigitte Monteiro PA-C 39-year-old female with past medical history significant for polycystic ovaries, hypertension, GERD, iron deficiency anemia, depression with anxiety, history of Irene-en-Y gastric bypass, anastomotic ulcer status post gastric bypass presents with nausea vomiting and abdominal pain. Patient states since about last 2 weeks she is having a lot of nausea and vomiting not able to keep anything down. Sometimes even could not keep her liquids down. Had some loose stools. Not micturating much because of not eating much. And couple of days ago start developing severe abdominal pain. She was in the [place] ER on 03/22/2025 where her LFTs were elevated at AST 176, ALT 59. And she also drinks alcohol. Total bilirubin was 1.8. CT abdomen pelvis with contrast and ultrasound was done. Ultrasound revealed hepatic steatosis with hepatomegaly. CT scan read as possible sequelae of Crohn's disease but patient did not had any history of Crohn's disease. [place] [facility] advised to stop drinking alcohol and to follow-up with GI. Her symptoms were not getting better. Today she was also developed some chest pain. Some tingliness in the middle of the chest going down into the torso and right leg which prompted her come to the ER. Also has weakness in legs. Has some dizziness. No headache. Has some sinus issues. Has some cough from sinuses. Sometimes getting short of breath. Currently resting comfortably and hemodynamics are okay.Patient says she is to drink 6-8 beers daily but stopped drinking about a week ago and is not having any withdrawal symptoms Past medical history. As mentioned above Past surgical history. Right carpal tunnel surgery. . Colonoscopy. D&C. EGD. Excision of excess of skin. Hemorrhoidectomy. Laparoscopic fulguration of oviducts. Laparoscopy of liver. Laparoscopic gastric restrictive Irene-en-Y bypass surgery. Nasal sinus endoscopy. Reduction mammoplasty. Tonsillectomy /adenoidectomy. Repair of nasal septum. Incision and drainage of left breast. Social history. . Smoked 0.3 pack a day for 9 years. Drinks alcohol. No drug use. Family history. Brother has asthma. Paternal grandfather had stomach cancer. Maternal grandmother had lung cancer. Paternal grandmother had lung cancer. Maternal grandfather had colon cancer. Father has diabetes. Mother has female dysphoric disorder. Allergies Allergy/AdvReac Type Severity Reaction Status Date / Time metoclopramide [From Reglan] AdvReac Intermediate panic Unverified 11/22/24 16:25 attacks Home Medications Medication Instructions Recorded Confirmed Type multivitamin 1 tab PO DAILY 06/03/18 03/26/25 History alprazolam 0.25 mg tablet 0.25 mg PO DAILY PRN Other 11/22/24 03/26/25 History furosemide 20 mg tablet 20 mg PO DAILY PRN Fluid Retention 11/22/24 03/26/25 History lidocaine 5 % topical patch 1 patch topical DAILY PRN pain #15 11/22/24 03/26/25 Rx ea metoprolol succinate 25 mg 25 mg PO DAILY 11/22/24 03/26/25 History tablet,extended release 24 hr pantoprazole 20 mg tablet,delayed 20 mg PO DAILY 11/22/24 03/26/25 History release sucralfate 1 gram tablet 1 g PO TID 11/22/24 03/26/25 History Past Med/Surg History Problem List (Updated 03/26/25 @ 21:41 by Devendra Esparza MD) Nausea & vomiting History of alcohol abuse (Acute) History of Irene-en-Y gastric bypass (Acute) Upper abdominal pain (Acute) Atypical chest pain (Acute) Headache (Acute) Medical History No significant past medical history Surgical History Hx of gastric bypass Family History Other No significant family history Social History Smoking Status: Current every day smoker Preferred Language: Slovenian Feels Safe at Home: Yes Review of Systems Review of Systems: All systems reviewed & are unremarkable except as noted in HPI & below Physical Exam 2 Physical Exam: General- Not in distress. Head- atraumatic Eyes- PERRL. ENT- oropharynx clear Neck- supple, no JVD. Lungs- clear to auscultation no wheezing or crackles Heart- regular rate and rhythm; no murmur, no gallop. Abdomen- normal bowel sounds, diffuse tenderness, no rigidity, mild guarding, no distension Extremities- no pretibial edema, no erythema seen Neuro- alert, oriented PERRL, no facial palsy; no dysarthria; moves extremities Results & Data Results & Data Vital Signs (Past 12 Hours) Vital Signs Temp Pulse Pulse Pulse Resp BP BP 03/26/25 21:00 76 16 114/72 03/26/25 19:00 86 16 107/66 03/26/25 18:23 73 03/26/25 17:04 69 16 113/88 03/26/25 15:21 86 18 115/78 03/26/25 15:21 84 03/26/25 14:28 79 03/26/25 13:52 36.8 C 103 H 20 123/79 Pulse Ox O2 Del Method 03/26/25 21:00 94 Room Air 03/26/25 19:00 98 Room Air 03/26/25 18:23 03/26/25 17:04 100 Room Air 03/26/25 15:21 100 Room Air 03/26/25 15:21 100 Room Air 03/26/25 14:28 03/26/25 13:52 100 Room Air Diagnostic Findings Laboratory Results WBC 9.60 K/ul (4.8-10.8) 03/26/25 14:06 RBC 3.38 M/uL (4.20-5.40) L 03/26/25 14:06 Hgb 12.1 g/dl (12.0-16.0) 03/26/25 14:06 Hct 34.9 % (37.0-47.0) L 03/26/25 14:06 MCV 103.3 fL (80.0-100.0) H 03/26/25 14:06 MCH 35.8 pg (25.0-34.0) H 03/26/25 14:06 MCHC 34.7 g/dL (32.0-36.0) 03/26/25 14:06 RDW Std Deviation 63.0 fL (36.4-46.3) H 03/26/25 14:06 RDW Coeff of Romain 16.5 % (11.5-14.5) H 03/26/25 14:06 Plt Count 149 K/uL (130-400) 03/26/25 14:06 MPV 10.8 fL (9.4-12.4) 03/26/25 14:06 Immature Gran % (Auto) 0.2 % 03/26/25 14:06 Neut % (Auto) 74.7 % 03/26/25 14:06 Lymph % (Auto) 16.4 % 03/26/25 14:06 [place] % (Auto) 7.9 % 03/26/25 14:06 Eos % (Auto) 0.3 % 03/26/25 14:06 Baso % (Auto) 0.5 % 03/26/25 14:06 Neut # (Auto) 7.17 K/uL (1.40-6.50) H 03/26/25 14:06 Lymph # (Auto) 1.57 K/uL (1.20-3.40) 03/26/25 14:06 [place] # (Auto) 0.76 K/uL (0.11-0.59) H 03/26/25 14:06 Eos # (Auto) 0.03 K/uL (0.00-0.50) 03/26/25 14:06 Baso # (Auto) 0.05 K/uL (0.00-0.20) 03/26/25 14:06 Immature Gran # (Auto) 0.02 K/uL (0.01-0.20) 03/26/25 14:06 PT 12.8 Seconds (9.0-12.0) H 03/26/25 14:06 INR 1.2 (0.9-1.1) H 03/26/25 14:06 Sodium 134 mmol/L (136-145) L 03/26/25 14:06 Potassium 3.3 mmol/L (3.5-5.1) L 03/26/25 14:06 Chloride 96 mmol/L (98-107) L 03/26/25 14:06 Carbon Dioxide 26 mmol/L (21-32) 03/26/25 14:06 Anion Gap 12 (3-11) H 03/26/25 14:06 BUN 6 mg/dl (6-23) 03/26/25 14:06 Creatinine 0.73 mg/dl (0.6-1.2) 03/26/25 14:06 Est Cr Clr Drug Dosing 111.1 ml/min 03/26/25 14:06 eGFR 108.56 03/26/25 14:06 BUN/Creatinine Ratio 8.2 (10-20) L 03/26/25 14:06 Glucose 122 mg/dl (70-99(Fasting)) H 03/26/25 14:06 Calcium 8.7 mg/dl (8.6-10.3) 03/26/25 14:06 Magnesium 2.0 mg/dl (1.7-2.4) 03/26/25 14:06 Total Bilirubin 3.2 mg/dl (0.2-1.0) H 03/26/25 14:06 AST 117 U/L (13-39) H 03/26/25 14:06 ALT 41 U/L (7-52) 03/26/25 14:06 Alkaline Phosphatase 112 U/L (34-104) H 03/26/25 14:06 Troponin I High Sens 4.3 pg/ml (0-14) 03/26/25 14:06 Total Protein 6.4 gm/dl (6.0-8.3) 03/26/25 14:06 Albumin 2.7 gm/dl (3.4-5.0) L 03/26/25 14:06 Globulin 3.7 gm/dl (2.5-4.0) 03/26/25 14:06 Albumin/Globulin Ratio 0.7 (0.9-2) L 03/26/25 14:06 Lipase 41 U/L (11-82) 03/26/25 14:06 Vitamin B12 887 pg/ml (180-914) 03/26/25 14:06 HCG, Qual Negative (Negative) 03/26/25 14:06 Urine Color Dark Yellow 03/26/25 16:42 Urine Appearance Clear (Clear) 03/26/25 16:42 Urine pH 7.0 (4.5-7.5) 03/26/25 16:42 Ur Specific [place] 1.009 (1.000-1.030) 03/26/25 16:42 Urine Protein Negative (Negative) 03/26/25 16:42 Urine Glucose (UA) Negative (Negative) 03/26/25 16:42 Urine Ketones Negative (Negative) 03/26/25 16:42 Urine Blood Negative (Negative) 03/26/25 16:42 Urine Nitrite Negative (Negative) 03/26/25 16:42 Urine Bilirubin 1+ (Negative) H 03/26/25 16:42 Urine Urobilinogen Negative (Negative) 03/26/25 16:42 Ur Leukocyte Esterase Trace (Negative) H 03/26/25 16:42 Urine WBC (Auto) 0-5 /hpf (0-5) 03/26/25 16:42 Urine RBC (Auto) 0-2 /hpf (0-2) 03/26/25 16:42 U Hyaline Cast (Auto) 0-2 /lpf (0-2) 03/26/25 16:42 U Epithel Cells (Auto) 0-2 /hpf (0-2) 03/26/25 16:42 Urine Bacteria (Auto) None Seen (None Seen) 03/26/25 16:42 Urine Comment 03/26/25 16:42 Impressions Abdomen/Pelvis CT 03/26/25 14:53 EXAMINATION: CT of the abdomen and pelvis performed after the administration of IV contrast. TECHNIQUE: Helical CT images from the lung bases through the symphysis pubis were obtained with contrast. Coronal and sagittal reformatted images were generated at a workstation for further assessment. Dose reduction techniques were achieved by using automatic exposure control and/or adjustment of mA and/or kV according to patient size and/or use of iterative reconstruction technique. HISTORY: Pulmonary embolism. Chest pain and abdominal pain. COMPARISON: June 03, 2018. FINDINGS: [place] film demonstrates no abnormality. Lung windows demonstrate clear included pulmonary bases. Soft tissue windows demonstrate slight heterogeneous but predominantly decreased attenuation of the liver. No appreciated mass or ductal dilatation. Cholecystectomy changes. Radiopaque staple line consistent with gastric bypass changes. No appreciated complication at these levels. Likely physiologic cyst right ovary. Mild air stool levels large bowel. Radiopaque density within the proximal descending large bowel likely representing residual radiopaque medicinal debris. Decreased attenuation submucosal region of the proximal large bowel. This is decompressed. Submucosal edema not excluded. No discrete mass or obstruction. Appendix is within normal limits. Nonspecific prominent gas distended loops of small bowel. Suspect transient process. Remaining solid and hollow organs of the abdomen and pelvis are within normal limits. No free air or free fluid. Bone windows demonstrate no acute osseous process. IMPRESSION: 1. Findings worrisome for proximal colitis. Etiology uncertain. No discrete mass or obstruction. 2. Uncomplicated appearing gastric bypass changes. 3. Question diffuse liver steatosis. Please see above for details. Electronically signed by Navi Rooney 03-26-2025 5:43 PM Chest CTA 03/26/25 14:53 Exam: CT angiogram chest with pulmonary embolus protocol Reason for exam: Pulmonary embolus with chest pain and abdominal pain Previous studies: Chest radiograph 11/22/2024 FINDINGS: There is good opacification of the pulmonary arteries. Persistent filling defect to indicate embolus is seen on either side at this time. Aorta shows minimal atherosclerotic plaquing without the evidence suggesting dissection or significant aneurysm at the examined levels. No significant coronary artery calcification seen at this time. No mediastinal mass or adenopathy. Visualized lung zones show some minor linear atelectasis/fibrosis in the right middle lobe but are otherwise free of active infiltrate or edema. No pleural effusion or pneumothorax is noted. There is diffuse fatty infiltrate in the liver which is enlarged. Clips from cholecystectomy are noted. IMPRESSION: 1. Negative for pulmonary embolus. 2. Negative for aortic dissection or aneurysm. 3. Essentially clear lung zones. 4. Hepatomegaly with diffuse fatty infiltration in the liver. Electronically signed by Larry Junior 03-26-2025 6:[address] 03/26/25 14:53 Exam: CT head brain without contrast Reason for exam: Vision changes Comparison studies: 03/17/2017 FINDINGS: No intracranial mass, hemorrhage or edema is evident at this time. No midline shift, ventriculomegaly or extra-axial blood/fluid collection is seen. The mastoids and visualized paranasal sinuses show small retention cyst in the right aspect of the sphenoid bone are otherwise clear. This was also present on the previous study. Bony calvarium otherwise intact. IMPRESSION: 1. Negative for active intracranial abnormality on unenhanced head CT study. 2. Retention cyst sphenoid sinus. Electronically signed by Larry Junior 03-26-2025 6:36 PM ECG Additional Comments: ECG. Normal sinus rhythm rate of 94. Nonspecific T wave abnormality. QTc 485. Code Status & VTE Plan VTE Prophylaxis Plan VTE Prophylaxis will be ordered: Yes
[2025-03-26] MEDS: POTASSIUM CHLORIDE / WTR 10 MEQ/100 ML PLCT IV SCH (22:44)
[2025-03-26] MEDS ORDERED: NITROGLYCERIN SL 0.4 MG/TAB TAB SL PRN (23:26)
[2025-03-26] MEDS ORDERED: HYDROmorphone INJ 0.5 MG/0.5 ML SYR IV PRN (23:26)
[2025-03-26] MEDS: ONDANSETRON INJ 2 MG/ML 2 ML VIAL IV PRN (23:33)
[2025-03-27] MEDS: HYDROmorphone INJ 0.5 MG/0.5 ML SYR IV PRN ×2 (00:08→04:25)
[2025-03-27] MEDS: FOLIC ACID 1 MG in SYRINGE 9.8 ML IV STA (00:10)
[2025-03-27] MEDS: D5W AND NSS 1,000 ML IV SCH (00:16)
[2025-03-27] MEDS: LORazepam 0.5 MG TAB SL STA ×3 (01:09→23:22)
[2025-03-27 06:42] LABS: Alanine Aminotransferase 34.0 U/L (7-52); Alkaline Phosphatase 83.0 U/L (34-104); Anion Gap 5.0 (3-11); Bilirubin,Total 2.3 mg/dl (0.2-1.0); Blood Urea Nitrogen 7.0 mg/dl (6-23); Calcium 7.7 mg/dl (8.6-10.3); Carbon Dioxide 29.0 mmol/L (21-32); Chloride 102.0 mmol/L (98-107); Creatinine Clr Calc Pharmacy 123.1 ml/min; Glucose 94.0 mg/dl (70-99(Fasting)); Magnesium 1.9 mg/dl (1.7-2.4); Potassium 2.9 mmol/L (3.5-5.1); Sodium 136.0 mmol/L (136-145); Total Protein 5.1 gm/dl (6.0-8.3)
[2025-03-27 06:59] LABS: Hematocrit (blood only) 30.5 % (37.0-47.0); Hemoglobin 10.3 g/dl (12.0-16.0); Mean Corpuscular Hemoglobin 36.3 pg (25.0-34.0); Mean Corpuscular Volume 107.4 fL (80.0-100.0); Platelet Count 90 K/uL (130-400); RDW Standard Deviation 65.1 fL (36.4-46.3); Red Blood Count 2.84 M/uL (4.20-5.40); White Blood Count 6.34 K/ul (4.8-10.8)
[2025-03-27 07:28] LABS: Immature Granulocytes # (auto) 0.03 K/uL (0.01-0.20); Immature Granulocytes % (auto) 0.5 %; RBC Morphology Unremarkable
[2025-03-27] MEDS: FOLIC ACID 1 MG in SYRINGE 9.8 ML IV SCH (08:13)
[2025-03-27] MEDS: THIAMINE HCL 100 MG in SYRINGE 9 ML IV SCH (08:13)
[2025-03-27] MEDS: PANTOprazole 40 MG/10 ML SYR IV SCH (08:13)
[2025-03-27] MEDS: METOPROLOL SUCC 25MG EXT REL TAB PO SCH (08:14)
[2025-03-27] MEDS: CEROVITE ADV FORMULA TAB PO SCH (08:26)
[2025-03-27] MEDS: MULTIVITAMIN TAB PO SCH (08:26)
[2025-03-27] MEDS: SUCRALFATE 1 GM TAB PO SCH (08:26)
[2025-03-27] MEDS: DICYCLOMINE HCL 10 MG CAP PO SCH (08:52)
[2025-03-27] MEDS: POTASSIUM CHLORIDE / WTR 10 MEQ/100 ML PLCT IV SCH (09:02)
--- NOTE | 2025-03-27 10:21 | Gastrointestinal Consultation ---
Date of Consultation March 27, 2025 Assessment & Plan (1) Nausea & vomiting: (2) Left sided abdominal pain: (3) Abnormal CT scan, colon: Plan -Continue supportive care with antiemetics & pain control per primary team -Stool studies ordered -Trend LFTs though suspect that they are alcohol related -Will discuss with Dr. Saldivar regarding timing/further GI work-up of colitis with potential colonoscopy vs other plans. -Will obtain results of most recent EGD for further information as well. Supervising Physician Co-Signing Physician Notes I saw and examined this patient with our nurse practitioner and agree with her assessment and plan. Her major symptoms continue to be nausea and vomiting with postprandial fullness. She had an anastomotic ulcer diagnosed several months ago. Need to consider progression of her ulcer disease with possible luminal obstruction causing partial gastric outlet obstruction. Will proceed with upper endoscopy to reassess the extent of her ulcer disease. I do not believe the CT scan shows significant colitis that warrants an investigation at this time. Stool studies were negative. Continue to monitor her symptoms. History of Present Illness Reason for Consultation: n/v, abdominal pain, colitis Attending Physician: Paul Hernandez MD History of Present Illness Patient is a 39 yo female with gastric bypass history at [facility] [place] who presented to [facility] for 2 weeks of n/v and decreased appetite. She notes that any time she eats food she vomits. She notes that she keeps some liquid down. She notes an association of left sided abdominal pain. She was previously seen at [facility] for these symptoms, but she notes she did not get answers. She notes that she developed blurry vision, weakness, and numbness/tingling down her torso and leg so she presented to [facility]. She notes a recent EGD at a different facility. She notes that she was told she had an anastomotic ulceration. She notes she has been taking Protonix 20 mg daily as well as Carafate TID. She notes that Zofran was not sufficient to completely stop her n/v. No history of similar symptoms previously. She notes she only moves her bowels once every 3-4 days but when she does go it's diarrhea. A CT scan in the ED showed the following: IMPRESSION: 1. Findings worrisome for proximal colitis. Etiology uncertain. No discrete mass or obstruction. 2. Uncomplicated appearing gastric bypass changes. 3. Question diffuse liver steatosis. Please see above for details. She was in the [place] ER on 03/22/2025 where her LFTs were elevated at AST 176, ALT 59. Total bilirubin was 1.8. CT abdomen pelvis with contrast and ultrasound was done. Ultrasound revealed hepatic steatosis with hepatomegaly. CT scan read as possible sequelae of Crohn's disease but patient did not had any history of Crohn's disease. [facility] advised to stop drinking alcohol and to follow-up with GI. Patient says she was drinking 6-8 beers daily but stopped drinking about a week ago. No pertinent family history. Allergies Allergy/AdvReac Type Severity Reaction Status Date / Time metoclopramide [From Reglan] AdvReac Intermediate panic Unverified 11/22/24 16:25 attacks Home Medications Medication Instructions Recorded Confirmed Type multivitamin 1 tab PO DAILY 06/03/18 03/26/25 History alprazolam 0.25 mg tablet 0.25 mg PO DAILY PRN Other 11/22/24 03/26/25 History furosemide 20 mg tablet 20 mg PO DAILY PRN Fluid Retention 11/22/24 03/26/25 History lidocaine 5 % topical patch 1 patch topical DAILY PRN pain #15 11/22/24 03/26/25 Rx ea metoprolol succinate 25 mg 25 mg PO DAILY 11/22/24 03/26/25 History tablet,extended release 24 hr pantoprazole 20 mg tablet,delayed 20 mg PO DAILY 11/22/24 03/26/25 History release sucralfate 1 gram tablet 1 g PO TID 11/22/24 03/26/25 History Patient History Medical History No significant past medical history Surgical History Hx of gastric bypass Family History Other No significant family history Social History Smoking Status: Never smoker Hx Alcohol Use: Yes Alcohol type: beer, wine and hard liquor Hx Substance Use: No Preferred Language: Togolese Communication Ability: Effective Textbook Associate Required: No Beliefs That Will Affect Care: None Current Living Situation: Spouse and Family Other Information That Helps Us Care for You: No Feels Safe at Home: Yes Safety Concerns: Feels Safe At This Time Assistive Devices: None Review of Systems Constitutional: no fever and no chills Respiratory: no cough and no dyspnea Gastrointestinal: + abdominal pain, + constipation and + d iarrhea/loose stools; no blood in stools Neurologic: + tingling Physical Exam Constitutional: well developed Respiratory: normal respiratory effort Cardiovascular: Rate/Rhythm: regular rate Gastrointestinal (Abdomen): Inspection/Auscultation: abdomen normal to inspection; abdomen not distended Percussion/Palpation: + abdomen tender and abdomen soft Psychiatric: Orientation: alert and oriented x 3 Results & Data Vital Signs (Past 12 Hours) Vital Signs Temp Pulse Pulse Resp BP BP Pulse Ox 03/27/25 08:26 36.7 C 77 18 104/68 97 03/27/25 07:06 70 03/27/25 04:41 36.7 C 75 20 117/79 97 03/27/25 00:37 36.6 C 81 18 121/83 96 03/27/25 00:31 76 03/26/25 23:26 36.6 C 81 18 121/83 96 03/26/25 23:15 78 20 97 03/26/25 22:16 87 O2 Del Method 03/27/25 08:26 Room Air 03/27/25 07:06 03/27/25 04:41 Room Air 03/27/25 00:37 Room Air 03/27/25 00:31 03/26/25 23:26 Room Air 03/26/25 23:15 Room Air 03/26/25 22:16 PG Care Time/CCT Total # of Minutes Spent Total Time Spent with Patient: Total time spent is greater than 50% in coordination of care (as documented) at patient's floor/unit and/or counseling patient: Coding Level of Care Code 58171 IN/OBS CONSULT LVL 4,60M Diagnoses Nausea & vomiting R11.2 Left sided abdominal pain R10.[address] scan, colon R93.3
--- NOTE | 2025-03-27 11:12 | Hospitalist Progress Note ---
Date of Service March 27, 2025 Assessment & Plan (1) Nausea & vomiting: Plan: 39-year-old female with past medical history significant for polycystic ovaries, hypertension, GERD, iron deficiency anemia, depression with anxiety, history of Irene-en-Y gastric bypass, anastomotic ulcer status post gastric bypass presents with nausea vomiting and abdominal pain. Nausea and vomiting Abdominal pain Morning patient reports abdominal pain, nausea and vomiting for several days. Recently was at [place] [facility] on 03/22; was prescribed Percocet for pain control History of possible alcohol use disorder; AST/ALT elevated. CT abdomen and pelvis on admission shows possible proximal colitis. Diffuse liver steatosis Minimize narcotic drug use; will start Bentyl 3 times daily along with Tylenol Obtain stool studies GI consulted for comanagement; appreciate recommendation Will restart diet and monitor for nausea/vomiting Chest pain likely GERD EKG on admission shows normal sinus rhythm; nonspecific T wave changes. CTA chest does not show PE High sensitive troponin negative Continue Protonix and carafate Hypokalemia- repleted Alcohol use disorder says quit about a week ago. Counseling as outpatint Thiamine, folic acid and multivitamin Monitor for withdrawal History of depression anxiety On xanax as needed Hypertension Metoprolol succinate,continue Gastric bypass surgery follow up with GI DVT prophylaxis SCDs for now Disposition Med/telemetry Full code. Please note the above document was generated using voice recognition software. It may contain grammatical, syntax or spelling errors. Any formal questions or concerns about the content, text or information contained within the body of this dictation should be directly addressed to the provider for clarification Admission and Anticipated Discharge Date Admission Date: March 26, 2025 Subjective Patient seen and examined at bedside. She reports pain across her periumbilical region; reports that the pain is constant. Reports nausea/vomiting as well; reports that unable to keep anything down for several weeks Review of Systems Review of Systems: All systems reviewed & are unremarkable except as noted in Subjective Physical Exam Physical Exam: General- Not in distress. Lungs- clear to auscultation no wheezing or crackles Heart- regular rate and rhythm; no murmur, no gallop. Abdomen- no guarding, minimal tenderness across periumbilical region. Extremities- no pretibial edema, no erythema seen Neuro- alert, oriented PERRL, no facial palsy; no dysarthria; moves extremit ies Results & Data Results & Data Vital Signs (Past 12 Hours) Vital Signs Temp Pulse Pulse Resp BP BP Pulse Ox 03/27/25 08:26 36.7 C 77 18 104/68 97 03/27/25 07:06 70 03/27/25 04:41 36.7 C 75 20 117/79 97 03/27/25 00:37 36.6 C 81 18 121/83 96 03/27/25 00:31 76 03/26/25 23:26 36.6 C 81 18 121/83 96 03/26/25 23:15 78 20 97 O2 Del Method 03/27/25 08:26 Room Air 03/27/25 07:06 03/27/25 04:41 Room Air 03/27/25 00:37 Room Air 03/27/25 00:31 03/26/25 23:26 Room Air 03/26/25 23:15 Room Air
[2025-03-27] MEDS: ACETAMINOPHEN 325 MG TAB PO PRN (11:49)
[2025-03-27 11:56] LABS: Amphetamines+Metham, Urine Neg (Neg); MDMA (Ecstacy), Urine Neg (Neg); Marijuana, Urine Neg (Neg)
[2025-03-27] MEDS: PROMETHAZINE 12.5 MG/50.5 ML BAG IV PRN (12:15)
[2025-03-27 14:40] LABS: Cdiff Toxin B Gene (2yr or >) Negative Cdiff Gene (Neg)
[2025-03-27 15:14] LABS: Adenovirus F 40/41 PCR Not Detected (NotDetected); Campylobacter PCR Not Detected (NotDetected); Enteroaggregative E.coli(EAEC) Not Detected (NotDetected); Shiga-like Toxin E.coli (STEC) Not Detected (NotDetected); Vibrio species PCR Not Detected (NotDetected)
[2025-03-27] MEDS: ACETAMINOPHEN 1,000 MG/100 ML VIAL IV PRN (17:34)
--- NOTE | 2025-03-27 18:32 | Electrocardiogram Report ---
Test Reason : Blood Pressure : */* mmHG Vent. Rate : 71 BPM Atrial Rate : 71 BPM P-R Int : 134 ms QRS Dur : 82 ms QT Int : 472 ms P-R-T Axes : * 184 184 degrees QTcB Int : 512 ms Normal sinus rhythm Right superior axis deviation T wave abnormality, consider anterior ischemia Prolonged QT Abnormal ECG When compared with ECG of 26-Mar-2025 14:01, QRS axis Shifted left T wave inversion less evident in Lateral leads Confirmed by Jean Vick ([id number]) on 03/27/2025 6:32:23 PM Referred By: REFERRED SELF Confirmed By: Jean Vick
[2025-03-28 08:58] LABS: Hematocrit (blood only) 27.7 % (37.0-47.0); Hemoglobin 9.4 g/dl (12.0-16.0); Immature Granulocytes # (auto) 0.01 K/uL (0.01-0.20); Immature Granulocytes % (auto) 0.2 %; Mean Corpuscular Hemoglobin 36.4 pg (25.0-34.0); Mean Corpuscular Volume 107.4 fL (80.0-100.0); Platelet Count 87 K/uL (130-400); RDW Standard Deviation 63.1 fL (36.4-46.3); Red Blood Count 2.58 M/uL (4.20-5.40); White Blood Count 4.04 K/ul (4.8-10.8)
--- NOTE | 2025-03-28 09:12 | History & Physical Bridge Note ---
Date of Service March 28, 2025 History & Physical Bridge Note I have examined the patient, reviewed the History & Physical and in the interval since the performance of the History & Physical I have noted the following changes of clinical significance: no changes noted Patient has been NPO since prior to midnight. Keep NPO and proceed with EGD today for further evaluation. Continue PPI at present. Supervising Physician Co-Signing Physician Notes I saw and examined this patient with our nurse practitioner and agree with her assessment and plan. Nausea and vomiting postprandial fullness. Prior history of anastomotic ulcer. Will proceed with endoscopy for further evaluation.
[2025-03-28 09:19] LABS: Anion Gap 5.0 (3-11); Blood Urea Nitrogen 6.0 mg/dl (6-23); Calcium 7.4 mg/dl (8.6-10.3); Carbon Dioxide 24.0 mmol/L (21-32); Chloride 112.0 mmol/L (98-107); Creatinine Clr Calc Pharmacy 140.8 ml/min; Glucose 86.0 mg/dl (70-99(Fasting)); Potassium 3.2 mmol/L (3.5-5.1); Sodium 141.0 mmol/L (136-145)
--- NOTE | 2025-03-28 14:04 | Hospitalist Progress Note ---
Date of Service March 28, 2025 Assessment & Plan (1) Nausea & vomiting: Plan: 39-year-old female with past medical history significant for polycystic ovaries, hypertension, GERD, iron deficiency anemia, depression with anxiety, history of Irene-en-Y gastric bypass, anastomotic ulcer status post gastric bypass presents with nausea vomiting and abdominal pain. Nausea and vomiting Abdominal pain patient reports abdominal pain, nausea and vomiting for several days. Recently was at [place] [facility] on 03/22; was prescribed Percocet for pain control History of possible alcohol use disorder; AST/ALT elevated. CT abdomen and pelvis on admission shows possible proximal colitis. Diffuse liver steatosis Minimize narcotic drug use; will start Bentyl 3 times daily along with Tylenol GI consulted for comanagement; Plan for endoscopy today Plan to resume diet Chest pain likely GERD EKG on admission shows normal sinus rhythm; nonspecific T wave changes. CTA chest does not show PE High sensitive troponin negative Echocardiogram shows EF of 55 to 60%; no regional wall motion abnormality. Continue Protonix and carafate Hypokalemia- repleted Alcohol use disorder says quit about a week ago. Counseling as outpatient Thiamine, folic acid and multivitamin Monitor for withdrawal History of depression anxiety On xanax as needed Hypertension Metoprolol succinate,continue Gastric bypass surgery follow up with GI DVT prophylaxis SCDs for now Disposition Med/telemetry Full code. Please note the above document was generated using voice recognition software. It may contain grammatical, syntax or spelling errors. Any formal questions or concerns about the content, text or information contained within the body of this dictation should be directly addressed to the provider for clarification Admission and Anticipated Discharge Date Admission Date: March 26, 2025 Subjective Patient seen and examined at bedside. She continues to report abdominal pain in the lower abdomen. No fever or chills overnight. Review of Systems Review of Systems: All systems reviewed & are unremarkable except as noted in Subjective Physical Exam Physical Exam: General- Not in distress. Lungs- clear to auscultation no wheezing or crackles Heart- regular rate and rhythm; no murmur, no gallop. Abdomen- no guarding, tenderness across periumbilical region. Extremities- no pretibial edema, no erythema seen Neuro- alert, oriented PERRL, no facial palsy; no dysarthria; moves extremities Results & Data Results & Data Vital Signs (Past 12 Hours) Vital Signs Temp Pulse Resp BP Pulse Ox O2 Del Method 03/28/25 11:37 36.9 C 62 18 128/64 98 Room Air 03/28/25 08:19 36.7 C 71 18 113/72 98 Room Air 03/28/25 03:11 36.8 C 76 15 112/74 96 Room Air
--- NOTE | 2025-03-28 14:12 | Anesthesiology Consultation ---
Date of Service March 28, 2025 Assessment & Plan ASA ASA3 Proposed Anesthesia Anesthesia Type: MAC History Surgery Operation Date: 03/28/25 17:40 Proposed Procedures p Esophagogastroduodenoscopy Dr. Yariel Saldivar MD Height/Weight Height: 5 ft 5 in Weight: 82.372 kg Allergies Allergy/AdvReac Type Severity Reaction Status Date / Time metoclopramide [From Reglan] AdvReac Intermediate panic Unverified 11/22/24 16:25 attacks Medications Home Medications Medication Instructions Recorded Confirmed Last Taken multivitamin 1 tab PO DAILY 06/03/18 03/26/25 11/22/24 alprazolam 0.25 mg tablet 0.25 mg PO DAILY PRN Other 11/22/24 03/26/25 Unknown furosemide 20 mg tablet 20 mg PO DAILY PRN Fluid Retention 11/22/24 03/26/25 11/22/24 lidocaine 5 % topical patch 1 patch topical DAILY PRN pain #15 11/22/24 03/26/25 Unknown ea metoprolol succinate 25 mg 25 mg PO DAILY 11/22/24 03/26/25 11/22/24 tablet,extended release 24 hr pantoprazole 20 mg tablet,delayed 20 mg PO DAILY 11/22/24 03/26/25 11/22/24 release sucralfate 1 gram tablet 1 g PO TID 11/22/24 03/26/25 Unknown Active Medications Generic Name Dose Route Start Last Admin Trade Name Freq PRN Reason Stop Dose Admin Acetaminophen 650 mg 03/27/25 10:32 03/27/25 20:33 Acetaminophen 325 Mg Tab PO 04/26/25 10:31 650 mg Q4H PRN Administration Pain Dicyclomine HCl 10 mg 03/27/25 09:00 03/28/25 10:03 Dicyclomine Hcl 10 Mg Cap PO 04/26/25 08:59 10 mg TID MARTA Administration Dextrose/Sodium Chloride 1,000 mls @ 125 mls/hr 03/26/25 23:26 03/28/25 13:45 D5w And Nss IV 03/29/25 23:25 0 mls/hr .Q8H MARTA Infusion Pantoprazole Sodium 40 mg in 10 mls @ 5 mls/min 03/27/25 09:00 03/28/25 10:04 Protonix IV 04/26/25 08:59 5 mls/min BID MARTA Administration Thiamine HCl 100 mg/ Syringe 10 mls @ 2 mls/min 03/27/25 09:00 03/28/25 10:05 IV 04/26/25 08:59 2 mls/min QAM MARTA Administration Folic Acid 1 mg/ Syringe 10 mls @ 5 mls/min 03/27/25 09:00 03/28/25 10:03 IV 04/26/25 08:59 5 mls/min QAM MARTA Administration Promethazine HCl 12.5 mg in 50.5 mls @ 202 mls/hr 03/27/25 11:10 03/27/25 12:38 Phenergan IV 04/26/25 11:09 Infused Q6H PRN Infusion Nausea And Vomiting Acetaminophen 1,000 mg in 100 mls @ 400 mls/hr 03/27/25 16:56 03/27/25 17:48 Ofirmev IV 03/30/25 16:55 Infused DAILY PRN Infusion Pain Sodium Chloride 500 mls @ 15 mls/hr 03/28/25 07:30 03/28/25 14:18 Nss IV 03/29/25 07:29 15 mls/hr .Q24H MARTA Administration Metoprolol Succinate 25 mg 03/27/25 09:00 03/28/25 10:04 Metoprolol Succ 25mg Ext Rel Tab PO 04/26/25 08:59 25 mg DAILY MARTA Administration Multivitamins 1 tab 03/27/25 09:00 03/28/25 10:04 Multivitamin Tab PO 04/26/25 08:59 1 tab DAILY MARTA Administration Multivitamins/Minerals 1 tab 03/27/25 09:00 03/28/25 10:04 Cerovite Adv Formula Tab PO 04/26/25 08:59 1 tab QAM MARTA Administration Sucralfate 1 gm 03/27/25 09:00 03/28/25 10:04 Sucralfate 1 Gm Tab PO 04/26/25 08:59 1 gm TID MARTA Administration NPO Date Last Intake of Fluids: 03/27/25 Time Last Intake of Fluids: 22:30 Date Last Intake of Solids: 03/27/25 Time Last Intake of Solids: 17:00 Past Medical History Medical History No significant past medical history Exercise / Class Metabolic Activity II 4-5 Yardwork/Stairs/Walk up hill Past Family History Family History Other No significant family history Past Surgical History Surgical History Hx of gastric bypass Past Anesthesia History No Hx of Anesthesia Complications and No Family Hx of Anesthesia Complications History of PONV No Hx of PONV and No Hx of Motion Sickness Social History Smoking Status: Never smoker Hx Alcohol Use: Yes Alcohol type: beer, wine and hard liquor alcohol intake frequency: other Alcohol Intake Frequency Comment: Recently quit drinking Hx Substance Use: No substance use type: does not use Physical Exam Vital Signs Last Vital Signs Temp 36.3 C L 03/28/25 14:03 Pulse 64 03/28/25 14:03 Resp 16 03/28/25 14:03 BP 106/86 03/28/25 14:03 Pulse Ox 96 03/28/25 14:03 O2 Del Method Room Air 03/28/25 14:03 ENMT Thyromental Distance: > or= 3.5 Finger Breadths Mallampati Class: II Neck normal visual inspection Respiratory normal respiratory effort Auscultation: lungs clear to auscultation bilaterally Cardiovascular Rate/Rhythm: regular rate and regular rhythm Neurologic moves all extremities Psychiatric Orientation: alert and oriented x 3 Testing Laboratory Results 03/28/25 08:26 03/28/25 08:26 PT 12.8 Seconds (9.0-12.0) H 03/26/25 14:06 INR 1.2 (0.9-1.1) H 03/26/25 14:06 Urine Color Dark Yellow 03/26/25 16:42 Urine Appearance Clear (Clear) 03/26/25 16:42 Urine pH 7.0 (4.5-7.5) 03/26/25 16:42 Ur Specific [place] 1.009 (1.000-1.030) 03/26/25 16:42 Urine Protein Negative (Negative) 03/26/25 16:42 Urine Glucose (UA) Negative (Negative) 03/26/25 16:42 Urine Ketones Negative (Negative) 03/26/25 16:42 Urine Nitrite Negative (Negative) 03/26/25 16:42 Ur Leukocyte Esterase Trace (Negative) H 03/26/25 16:42 Urine WBC (Auto) 0-5 /hpf (0-5) 03/26/25 16:42 Urine RBC (Auto) 0-2 /hpf (0-2) 03/26/25 16:42 U Hyaline Cast (Auto) 0-2 /lpf (0-2) 03/26/25 16:42 U Epithel Cells (Auto) 0-2 /hpf (0-2) 03/26/25 16:42 Urine Bacteria (Auto) None Seen (None Seen) 03/26/25 16:42
[2025-03-28] MEDS: SODIUM CHLORIDE 0.9% 500 ML IV SCH (14:18)
--- NOTE | 2025-03-28 14:34 | GI REPORT ---
[facility] Patient: LISA KRUSE : 1985 Sex at : Female Age: 39 Years Procedure: Upper GI endoscopy Date: 03/28/2025 Attending Physician: Dao Saldivar MD Referring MD: Referred Self Indications: - Nausea vomiting and abdominal pain Medications: - Monitored Anesthesia Care Complications: - No immediate complications. Procedure: - Prior to the procedure, a History and Physical was performed, and patient medications and allergies were reviewed. The patient's tolerance of previous anesthesia was also reviewed. The risks and benefits of the procedure and the sedation options and risks were discussed with the patient. All questions were answered, and informed consent was obtained. [Anticoagulant Agents] [Days Prior to Procedure]. [ASA Grade]. After reviewing the risks and benefits, the patient was deemed in satisfactory condition to undergo the procedure. - The EGD scope was introduced through the mouth and advanced to the second part of the duodenum. - The upper GI endoscopy was accomplished without difficulty. - The patient tolerated the procedure well. Findings: - The examined esophagus was normal. - Evidence of a gastric bypass was found in the gastric body. This was characterized a healthy appearing gastrojejunostomy anastomosis. No ulcers seen. Biopsies were taken with a cold forceps for histology/Hpylori. - The examined jejunum was normal. Impression: - Normal esophagus. - A gastric bypass was found with healthy anastomosis. Biopsied. - Normal examined jejunum. Recommendation: - Resume previous diet. - Patient has a contact number available for emergencies. The signs and symptoms of potential delayed complications were discussed with the patient. Return to normal activities tomorrow. Written discharge instructions were provided to the patient. Procedure Code(s): - 71313, Esophagogastroduodenoscopy, flexible, transoral; with biopsy, single or multiple Diagnosis Code(s): - Z98.84, Bariatric surgery status CPT(R) - 2022 copyright [employer]. All Rights Reserved. The CPT codes, CCI edits and ICD codes generated are intended as suggestions and were generated based on input data. These codes are preliminary and upon line crew supervisor review may be revised to meet current compliance and payer requirements. The provider is responsible for the final determination of appropriate codes, and modifiers. Dao Saldivar MD This document has been electronically signed. Note Initiated:03/28/2025 Note Completed:03/28/2025 2:33 PM \\[id number]
--- NOTE | 2025-03-28 14:39 | Anesthesiology Progress Note ---
Date of Service March 28, 2025 Anesthesia Post Procedure Vital Signs Vital Signs: Temp Pulse Pulse Resp BP BP Pulse Ox 03/28/25 14:33 79 18 116/83 96 03/28/25 14:03 36.3 C L 64 16 106/86 96 03/28/25 11:37 36.9 C 62 18 128/64 98 03/28/25 08:19 36.7 C 71 18 113/72 98 03/28/25 03:11 36.8 C 76 15 112/74 96 03/27/25 22:30 36.9 C 62 16 128/83 100 03/27/25 21:47 70 03/27/25 20:31 36.9 C 102 H 16 130/88 98 03/27/25 15:33 37.0 C 70 18 118/76 94 O2 Del Method 03/28/25 14:33 Room Air 03/28/25 14:03 Room Air 03/28/25 11:37 Room Air 03/28/25 08:19 Room Air 03/28/25 03:11 Room Air 03/27/25 22:30 Room Air 03/27/25 21:47 03/27/25 20:31 Room Air 03/27/25 15:33 Room Air Pain Intensity Abdomen: Pain Intensity: 7 Transfer of Care Handoff Completed per policy Notes Mental Status: alert / awake / arousable Patient Amnestic to Procedure: Yes Nausea / Vomiting: adequately controlled Pain: adequately controlled Airway Patency, RR, SpO2: stable & adequate BP & HR: stable & adequate Hydration State: stable & adequate Anesthetic Complications: no major complications apparent and Pt Satisfied with anesthetic care
[2025-03-28] MEDS: LIDOCAINE 2% 2 ML VIAL/AMP(20MG/ML) INFIL ONE (17:44)
[2025-03-28] MEDS: MIDAZOLAM HCL 1 MG/ML 2ML VIAL ONE ×2 (17:44)
[2025-03-28] MEDS: PROPOFOL IV EMULSION 10 MG/ML 20 ML VIAL IV ONE (17:44)
--- NOTE | 2025-03-28 17:50 | Electrocardiogram Report ---
Test Reason : Blood Pressure : */* mmHG Vent. Rate : 77 BPM Atrial Rate : 77 BPM P-R Int : 136 ms QRS Dur : 84 ms QT Int : 440 ms P-R-T Axes : 45 6 -20 degrees QTcB Int : 497 ms Normal sinus rhythm Nonspecific ST abnormality Abnormal ECG When compared with ECG of 27-Mar-2025 05:42, Questionable change in QRS axis T wave inversion no longer evident in Lateral leads Confirmed by Jean Vick ([id number]) on 03/28/2025 5:49:53 PM Referred By: REFERRED SELF Confirmed By: Jean Vick
[2025-03-28] MEDS: LORazepam 0.5 MG TAB PO STA (21:50)
[2025-03-29 08:29] LABS: Hematocrit (blood only) 30.5 % (37.0-47.0); Hemoglobin 10.1 g/dl (12.0-16.0); Immature Granulocytes # (auto) 0.01 K/uL (0.01-0.20); Immature Granulocytes % (auto) 0.2 %; Mean Corpuscular Hemoglobin 36.1 pg (25.0-34.0); Mean Corpuscular Volume 108.9 fL (80.0-100.0); Platelet Count 105 K/uL (130-400); RDW Standard Deviation 64.9 fL (36.4-46.3); Red Blood Count 2.80 M/uL (4.20-5.40); White Blood Count 5.53 K/ul (4.8-10.8)
[2025-03-29 08:46] LABS: Anion Gap 5.0 (3-11); Blood Urea Nitrogen 5.0 mg/dl (6-23); Calcium 7.7 mg/dl (8.6-10.3); Carbon Dioxide 23.0 mmol/L (21-32); Chloride 112.0 mmol/L (98-107); Creatinine Clr Calc Pharmacy 152.7 ml/min; Glucose 84.0 mg/dl (70-99(Fasting)); Potassium 3.1 mmol/L (3.5-5.1); Sodium 140.0 mmol/L (136-145)
--- NOTE | 2025-03-29 12:32 | Gastroenterology Progress Note ---
Date of Service March 29, 2025 Assessment & Plan (1) Left sided abdominal pain: Plan: Recent GI work-up with CT scans x 2, EGD & colonoscopy without significant pathology. Discussed with primary team who is requesting consult for CHIEF PAYROLL CLERK eval. Other considerations include repeating a CT abdomen/pelvis with oral contrast. Would also consider adhesional pain given significant amount of abdominal surgeries. Will discuss further with Dr. Saldivar who will be rounding on the patient later today. Admission and Anticipated Discharge Date Admission Date: March 26, 2025 Supervising Physician Co-Signing Physician Notes I saw and examined this patient with our nurse practitioner and agree with her assessment and plan. Food better less nausea and vomiting. Still with discomfort. Bleeding evaluation. Recommend KUB to rule out ileus. Subjective Patient is a 39 yo female with left sided abdominal pain. She notes persistence of this pain. She denies any new symptoms. She has had recent EGD, colonoscopy, & multiple CT scans of the abdomen/pelvis. Review of Systems Gastrointestinal: + abdominal pain Physical Exam Gastrointestinal (Abdomen): Inspection/Auscultation: abdomen normal to inspection Percussion/Palpation: + abdomen tender and abdomen soft Results & Data Results & Data Vital Signs (Past 12 Hours) Vital Signs Temp Pulse Pulse Resp BP BP Pulse Ox 03/29/25 12:29 74 03/29/25 11:40 36.8 C 75 18 138/87 99 03/29/25 07:35 36.6 C 74 18 136/89 99 03/29/25 04:00 36.8 C 74 18 121/79 99 O2 Del Method 03/29/25 12:29 03/29/25 11:40 Room Air 03/29/25 07:35 Room Air 03/29/25 04:00 Room Air PG Care Time/CCT Total # of Minutes Spent Total Time Spent with Patient: Total time spent is greater than 50% in coordination of care (as documented) at patient's floor/unit and/or counseling patient: Coding Level of Care Code 16926 SUB INP/OBS CARE 2/35MIN Diagnoses Left sided abdominal pain R10.9
--- NOTE | 2025-03-29 13:34 | Hospitalist Progress Note ---
Date of Service March 29, 2025 Assessment & Plan (1) Nausea & vomiting: Plan: 39-year-old female with past medical history significant for polycystic ovaries, hypertension, GERD, iron deficiency anemia, depression with anxiety, history of Irene-en-Y gastric bypass, anastomotic ulcer status post gastric bypass presents with nausea vomiting and abdominal pain. Abdominal pain Nausea and vomiting Patient reports lower abdominal pain, nausea and vomiting for 2 weeks. Recently was at [place] [facility] on 03/22;was prescribed Percocet for pain control CT abdomen and pelvis on admission shows possible proximal colitis. Diffuse liver steatosis Underwent endoscopy on 03/28no acute finding Patient had undergone GI workup with CT abdomen/pelvis endoscopy, colonoscopy in last 2 monthswithout any finding that could explain her abdominal pain. She reports heavy menstrual bleed; had recently undergone pelvic ultrasound in January which showed" left lateral intramural uterine fibroid and heterogeneous myometrial echotexture with a somewhat striated appearance of the myometrium which may be seen in adenomyosis". Will consult RESOURCE DEVELOPMENT MANAGER for further evaluation of the abdominal pain to see if origin of pain is related with the usg findings. Pelvic ultrasound is ordered. Continue management of pain with Bentyl/Percocet as needed Chest pain likely GERD EKG on admission shows normal sinus rhythm; nonspecific T wave changes. CTA chest does not show PE High sensitive troponin negative Echocardiogram shows EF of 55 to 60%; no regional wall motion abnormality. Continue Protonix and carafate Hypokalemia- repleted Alcohol use disorder says quit about a week ago. Counseling as outpatient Thiamine, folic acid and multivitamin Monitor for withdrawal History of depression anxiety On xanax as needed Hypertension Metoprolol succinate,continue Gastric bypass surgery follow up with GI DVT prophylaxis SCDs for now Disposition Med/telemetry Full code. Time spent evaluating patient, direct bedside care, chart review, placing orders, interpretation of diagnostic studies, discussion with consultants, patient, and family members, as well as other required patient management ac tivities is 50 minutes Please note the above document was generated using voice recognition software. It may contain grammatical, syntax or spelling errors. Any formal questions or concerns about the content, text or information contained within the body of this dictation should be directly addressed to the provider for clarification Admission and Anticipated Discharge Date Admission Date: March 26, 2025 Subjective Patient continues to report abdominal pain in her lower abdomen. Reports that the nausea and vomiting has improved. No significant events overnight Review of Systems Review of Systems: All systems reviewed & are unremarkable except as noted in Subjective Physical Exam Physical Exam: Constitutional: Alert oriented x 3; not in distress. Respiratory: normal respiratory effort, lungs clear to auscultation, no wheeze, rales, rhonchi. Normal insp/exp effort, no accessory muscle use Cardiovascular: RRR, no murmur, no edema Vessels: no JVD or carotid bruit Chest: normal inspection of chest Abdomen: Tenderness across left lower quadrant to right lower quadrant. BS +nt Musculoskeletal: no cyanosis or clubbing, extremities motor strength 5/5 Skin: no rashes, warm and dry normal turgor Neurologic: PERRL, EOMI, accommodation nl, no face palsy, no dysarthria CN's II- XI intact bilaterally and moves all extremities Psychiatric: A+Ox3, euthymic affect Results & Data Results & Data Vital Signs (Past 12 Hours) Vital Signs Temp Pulse Pulse Resp BP BP Pulse Ox 03/29/25 12:29 74 03/29/25 11:40 36.8 C 75 18 138/87 99 03/29/25 07:35 36.6 C 74 18 136/89 99 03/29/25 04:00 36.8 C 74 18 121/79 99 O2 Del Method 03/29/25 12:29 03/29/25 11:40 Room Air 03/29/25 07:35 Room Air 03/29/25 04:00 Room Air
[2025-03-29] MEDS: POTASSIUM CHLORIDE / WTR 10 MEQ/100 ML PLCT IV SCH (14:04)
--- NOTE | 2025-03-29 15:31 | Ultrasound Report ---
US pelvic complete HISTORY: 39 years-old Female concern for adenomyosis acute generalized pelvic pain COMPARISON: CT abdomen and pelvis 03/26/2025 TECHNIQUE: Multiple real-time sonographic images of the deep pelvic structures were obtained transabd ominally assessing grayscale appearance, and color flow. FINDINGS: Uterus measures 8.9 x 4.3 x 4.4 cm. Endometrium is 6 mm in thickness. Small amount of abdominal pelvi c ascites.. No myometrial mass lesions are seen. The right ovary measures 3.8 x 2.1 x 2.6 cm. Left ovary measures 4.1 x 2.3 x 2.4 cm. Knitting Machine Operator repo rts that normal arterial inflow and venous outflow is present bilaterally, however those images were not submitted on this study. Hepatic steatosis with possible cirrhosis. IMPRESSION: 1. Unremarkable appearance of the uterus and endometrium. 2. Hepatic steatosis with possible mild cirrhosis. 3. Small amount of abdominopelvic ascites. 4. Unremarkable sonographic appearance of the ovaries. ACT 112: Negative or not required by law. The above report was generated using voice recognition software. It may contain grammatical, syntax o r spelling errors. Electronically signed by: Felipe Osorio M.D. 03/29/2025 3:30 PM
--- NOTE | 2025-03-29 16:05 | OB/GYN Consultation ---
Date of Consultation March 29, 2025 Assessment & Plan (1) Nausea & vomiting: Present on Admission?: Yes (2) History of alcohol abuse: Present on Admission?: Yes (3) Upper abdominal pain: Present on Admission?: Yes (4) Irregular periods/menstrual cycles: Present on Admission?: Yes (5) History of PCOS: Present on Admission?: Yes Plan Pt is discussed about the clinical condition, discussed the options of control pill but not a good candidate for hormones due to liver issues etc. Pt declined to try IUD or Nexplanon. Discussed the option of uterine ablation, pt desires to get partial hysterectomy. Pt desires to be seen at [facility] office , tried to schedule appt with the [facility] office after discharge early next week for further evaluation an Sscheduling for the Hysterectomy if the pt meets the criteria. At this time, o other SENIOR C SOFTWARE ENGINEER intervention needed. Thank you for the consult. total time spent with the pt 42 min History of Present Illness Reason for Consultation: pt 39 yr old with h/o PCOS, pelvic pain, irregular periods etc. Requesting Physician: Dr. Hernandez ( Hospitalist) Attending Physician: Paul Hernandez MD History of Present Illness 39-year-old female with past medical history significant for polycystic ovaries, hypertension, GERD, iron deficiency anemia, depression with anxiety, history of Irene-en-Y gastric bypass, anastomotic ulcer status post gastric bypass presents with nausea vomiting and abdominal pain. Patient states since about last 2 weeks she is having a lot of nausea and vomiting not able to keep anything down. Sometimes even could not keep her liquids down. Had some loose stools. Not micturating much because of not eating much. And couple of days ago start developing severe abdominal pain. She was in the [facility] on 03/22/2025 where her LFTs were elevated at AST 176, ALT 59. And she also drinks alcohol. Total bilirubin was 1.8. CT abdomen pelvis with contrast and ultrasound was done. Ultrasound revealed hepatic steatosis with hepatomegaly. CT scan read as possible sequelae of Crohn's disease but patient did not had any history of Crohn's disease. [facility] advised to stop drinking alcohol and to follow-up with GI. Her symptoms were not getting better. Pt was at [facility]( [facility]) 2 years ago, was seen for the same issues as mentioned above like pcos, Irregular periods, dysmenorrhea. Periods are irregular sometimes every 4 weeks or sometimes skip a month, heavy menstrual bleeding for a week and more. Pt is in stable sexual relation with her . Denies h/o STI s Past medical history. As mentioned above Past surgical history. Right carpal tunnel surgery. . Colonoscopy. D&C. EGD. Excision of excess of skin. Hemorrhoidectomy. Laparoscopic fulguration of oviducts. Laparoscopy of liver. Laparoscopic gastric restrictive Irene-en-Y bypass surgery. Nasal sinus endoscopy. Reduction mammoplasty. Tonsillectomy /adenoidectomy. Repair of nasal septum. Incision and drainage of left breast. Social history. . Smoked 0.3 pack a day for 9 years. Drinks alcohol. No drug use. Family history. Brother has asthma. Paternal grandfather had stomach cancer. Maternal grandmother had lung cancer. Paternal grandmother had lung cancer. Maternal grandfather had colon cancer. Father has diabetes. Mother has female dysphoric disorder. Allergies Allergy/AdvReac Type Severity Reaction Status Date / Time metoclopramide [From Reglan] AdvReac Intermediate panic Unverified 11/22/24 16:25 attacks Home Medications Medication Instructions Recorded Confirmed Type multivitamin 1 tab PO DAILY 06/03/18 03/26/25 History alprazolam 0.25 mg tablet 0.25 mg PO DAILY PRN Other 11/22/24 03/26/25 History furosemide 20 mg tablet 20 mg PO DAILY PRN Fluid Retention 11/22/24 03/26/25 History lidocaine 5 % topical patch 1 patch topical DAILY PRN pain #15 11/22/24 03/26/25 Rx ea metoprolol succinate 25 mg 25 mg PO DAILY 11/22/24 03/26/25 History tablet,extended release 24 hr pantoprazole 20 mg tablet,delayed 20 mg PO DAILY 11/22/24 03/26/25 History release sucralfate 1 gram tablet 1 g PO TID 11/22/24 03/26/25 History Past Med/Surg History Problem List (Updated 03/26/25 @ 21:41 by Devendra Esparza MD) Nausea & vomiting History of alcohol abuse (Acute) History of Irene-en-Y gastric bypass (Acute) Upper abdominal pain (Acute) Atypical chest pain (Acute) Headache (Acute) Medical History No significant past medical history Surgical History Hx of gastric bypass SENIOR C SOFTWARE ENGINEER surgeries: C/S X 2, h/o ruptured ectopic . Family History Other No significant family history Social History Smoking Status: Current every day smoker Preferred Language: French Feels Safe at Home: Yes Allergies Allergy/AdvReac Type Severity Reaction Status Date / Time metoclopramide [From Reglan] AdvReac Intermediate panic Unverified 11/22/24 16:25 attacks Home Medications Medication Instructions Recorded Confirmed Type multivitamin 1 tab PO DAILY 06/03/18 03/26/25 History alprazolam 0.25 mg tablet 0.25 mg PO DAILY PRN Other 11/22/24 03/26/25 History furosemide 20 mg tablet 20 mg PO DAILY PRN Fluid Retention 11/22/24 03/26/25 History lidocaine 5 % topical patch 1 patch topical DAILY PRN pain #15 11/22/24 03/26/25 Rx ea metoprolol succinate 25 mg 25 mg PO DAILY 11/22/24 03/26/25 History tablet,extended release 24 hr pantoprazole 20 mg tablet,delayed 20 mg PO DAILY 11/22/24 03/26/25 History release sucralfate 1 gram tablet 1 g PO TID 11/22/24 03/26/25 History Patient History Medical History No significant past medical history Surgical History Hx of gastric bypass Family History Other No significant family history Social History Smoking Status: Never smoker Hx Alcohol Use: Yes Alcohol type: beer, wine and hard liquor Hx Substance Use: No Preferred Language: French Communication Ability: Effective Collections Technician Required: No Beliefs That Will Affect Care: None Current Living Situation: Spouse and Family Other Information That Helps Us Care for You: No Feels Safe at Home: Yes Safety Concerns: Feels Safe At This Time Assistive Devices: None Review of Systems Review of Systems: All systems reviewed & are unremarkable except as noted in HPI & below Constitutional: as per Subjective / HPI Respiratory: as per Subjective / HPI Cardiovascular: as per Subjective / HPI Gastrointestinal: + abdominal pain, + bloating, + nausea a nd + vomiting Genitourinary: + abnormal periods and + dysmenorrhea Physical Exam Constitutional: WD/WN, vitals as above Respiratory: normal respiratory effort, lungs clear to auscultation Cardiovascular: RRR, no murmur, no edema Gastrointestinal (Abdomen): bloated, non tender on touch or palpation Skin: no rashes, warm and dry Psychiatric: A+Ox3, euthymic affect Genitourinary: deferred Results & Data Vital Signs (Past 12 Hours) Vital Signs Temp Pulse Pulse Resp BP BP Pulse Ox 03/29/25 15:43 36.6 C 66 18 123/81 99 03/29/25 12:29 74 03/29/25 11:40 36.8 C 75 18 138/87 99 03/29/25 07:35 36.6 C 74 18 136/89 99 O2 Del Method 03/29/25 15:43 Room Air 03/29/25 12:29 03/29/25 11:40 Room Air 03/29/25 07:35 Room Air
[2025-03-29] MEDS: GABAPENTIN 300 MG CAP PO ONE (17:25)
[2025-03-29] MEDS ORDERED: ACETAMINOPHEN 500 MG TAB PO PRN (19:54)
[2025-03-29] MEDS: OPTIRAY 320 100ml IV ONE (20:33)
--- NOTE | 2025-03-29 22:31 | CT Scan Report ---
Exam(s): CT ABDOMEN + PELVIS With Contrast IV Amt: 92ml optiray 320 EXAM: CT Abdomen and Pelvis With Intravenous Contrast CLINICAL HISTORY: Reason for exam: worsening abd pain. TECHNIQUE: Axial computed tomography images of the abdomen and pelvis with intravenous contrast. CTDI is 25.35 mGy and DLP is 1438.3 mGy-cm. Automated exposure control was utilized for the study. A dose lowering technique was utilized adhering to the principles of ALARA. CONTRAST: Patient received 92ml optiray 320 of IV contrast COMPARISON: 03/26/2025 FINDINGS: Lung bases: Unremarkable. ABDOMEN: Liver: Low-attenuation of the liver suggesting steatosis. Slight liver surface nodularity with widening of the fissures may represent cirrhotic change. Gallbladder and bile ducts: Cholecystectomy. No ductal dilation. Pancreas: Unremarkable. No mass. No ductal dilation. Spleen: Splenomegaly measuring 14 cm. Adrenals: Unremarkable. No mass. Kidneys and ureters: Unremarkable. No solid mass. No hydronephrosis. Stomach and bowel: Postoperative change of gastric bypass. No bowel obstruction. Nonspecific small bowel wall thickening and proximal colonic wall thickening. PELVIS: Appendix: Normal appendix. Bladder: Unremarkable. No mass. Reproductive: Unremarkable as visualized. ABDOMEN and PELVIS: Intraperitoneal space: Mild ascites. No free air. Bones/joints: No acute fracture. No dislocation. Soft tissues: Mesenteric edema. Vasculature: Patent portal vein. No aortic aneurysm. Lymph nodes: Unremarkable. No enlarged lymph nodes. IMPRESSION: 1. Query cirrhotic liver with portal hypertensive change including mild ascites and splenomegaly measuring 14 cm. 2. Wall thickening in the small bowel and proximal colon. This could reflect portal hypertensive change versus infectious or inflammatory enterocolitis. Correlate clinically. Electronically signed by: Maren Bravo M.D. 03/29/25 22:30 PM
[2025-03-29] MEDS: LORazepam 0.5 MG TAB PO PRN (23:44)
--- NOTE | 2025-03-30 00:55 | Communication Note ---
Date of Service: March 30, 2025 Patient with worsening abdominal pain as per RN. CT abdomen pelvis: 1. Query cirrhotic liver with portal hypertensive change including mild ascites and splenomegaly measuring 14 cm. 2. Wall thickening in the small bowel and proximal colon. This could reflect portal hypertensive change versus infectious or inflammatory enterocolitis. Correlate clinically. AP Possible SBP Ceftriaxone, albumin Diagnostic and therapeutic paracentesis in a.m.
[2025-03-30] MEDS: cefTRIAXone SODIUM 2,000 MG/50 ML BAG IV SCH (01:28)
[2025-03-30] MEDS: ALBUMIN 25% 25 GM/100 ML VIAL IV SCH (02:17)
[2025-03-30 07:56] LABS: Hematocrit (blood only) 28.0 % (37.0-47.0); Hemoglobin 9.5 g/dl (12.0-16.0); Immature Granulocytes # (auto) 0.02 K/uL (0.01-0.20); Immature Granulocytes % (auto) 0.5 %; Mean Corpuscular Hemoglobin 36.4 pg (25.0-34.0); Mean Corpuscular Volume 107.3 fL (80.0-100.0); Platelet Count 103 K/uL (130-400); RDW Standard Deviation 64.6 fL (36.4-46.3); Red Blood Count 2.61 M/uL (4.20-5.40); White Blood Count 4.02 K/ul (4.8-10.8)
[2025-03-30] MEDS: POTASSIUM CHLORIDE / WTR 10 MEQ/100 ML PLCT IV SCH (08:19)
[2025-03-30 08:34] LABS: INR 1.2 (0.9-1.1); Prothrombin Time 12.8 Seconds (9.0-12.0)
[2025-03-30] MEDS: metroNIDAZOLE 500 MG/100 ML BAG IV SCH (09:59)
[2025-03-30] MEDS: CAPSAICIN CR 0.075% 60 GM TUBE EXT SCH (10:47)
[2025-03-30 11:52] LABS: Hydrocodone Urine NEGATIVE ng/mL (<50); Hydromor Urine 568 ng/mL (<50); Noroxycodone Urine 633 ng/mL (<50); Oxymorph Urine NEGATIVE ng/mL (<50)
--- NOTE | 2025-03-30 12:59 | Ultrasound Report ---
ULTRASOUND-GUIDED PARACENTESIS CLINICAL HISTORY: Ascites PROCEDURE: Procedure and risks were explained. Informed consent was obtained. A final timeout was com pleted. The abdomen was prepped and draped in sterile fashion. 1% lidocaine was utilized for skin ane sthesia. Utilizing ultrasound guidance, a 5 Lebanese safety centesis catheter was advanced into the right lower quadrant pocket of ascites. Ultrasound images were obtained. 1 L of ascites fluid was removed and sen t to the lab for analysis. The catheter was removed and Band-Aid applied. The patient tolerated the p rocedure well. Vital signs will be monitored postprocedure. IMPRESSION: Ultrasound-guided paracentesis as above. Performed, dictated, and signed by Hakeem Jean PA-C; to be co-signed by Dr. Ricky Israel. Electronically signed by: Ricky Israel M.D. 03/30/2025 1:01 PM
--- NOTE | 2025-03-30 13:07 | Hospitalist Progress Note ---
Date of Service March 30, 2025 Assessment & Plan (1) Nausea & vomiting: Plan: 39-year-old female with past medical history significant for polycystic ovaries, hypertension, GERD, iron deficiency anemia, depression with anxiety, history of Irene-en-Y gastric bypass, anastomotic ulcer status post gastric bypass presents with nausea vomiting and abdominal pain. Abdominal pain Nausea and vomiting Patient reports lower abdominal pain, nausea and vomiting for 2 weeks. Recently was at [place] [facility] on 03/22;was prescribed Percocet for pain control CT abdomen and pelvis on admission shows possible proximal colitis. Diffuse liver steatosis Underwent endoscopy on 03/28no acute finding Patient had undergone GI workup with CT abdomen/pelvis endoscopy, colonoscopy in last 2 months without any finding that could explain her abdominal pain. She reports heavy menstrual bleed; had recently undergone pelvic ultrasound in January which showed" left lateral intramural uterine fibroid and heterogeneous myometrial echotexture with a somewhat striated appearance of the myometrium which may be seen in adenomyosis". Gynecology was consulted; recommended outpatient follow-up. Patient's abdominal pain continues to persist; CT abdomen pelvis was done on 03/29 which showed wall thickening in the small bowel/proximal colon, possible cirrhotic liver with portal hypertension along with mild ascites. Patient is started on ceftriaxone, Flagyl for possible infectious colitis. Patient to undergo paracentesis to rule out SBP Patient is also started on Cymbalta for possible neuropathic pain as well as capsicin cream. Will monitor response Chest pain likely GERD EKG on admission shows normal sinus rhythm; nonspecific T wave changes. CTA chest does not show PE High sensitive troponin negative Echocardiogram shows EF of 55 to 60%; no regional wall motion abnormality. Continue Protonix and carafate Hypokalemia- repleted Alcohol use disorder says quit about a week ago. Counseling as outpatient Thiamine, folic acid and multivitamin Monitor for withdrawal History of depression anxiety On xanax as needed Hypertension Metoprolol succinate,continue Gastric bypass surgery follow up with GI DVT prophylaxis SCDs for now Disposition Med/telemetry Full code. Time spent evaluating patient, direct bedside care, chart review, placing orders, interpretation of diagnostic studies, discussion with consultants, patient, and family members, as well as other required patient management activities is 50 minutes Please note the above document was generated using voice recognition software. It may contain grammatical, syntax or spelling errors. Any formal questions or concerns about the content, text or information contained within the body of this dictation should be directly addressed to the provider for clarification Admission and Anticipated Discharge Date Admission Date: March 26, 2025 Subjective Patient seen and examined at bedside. She reports that the pain recurred overnight; repeat CT abdomen/pelvis was done; was found to have possible cirrhotic liver including mild ascites and splenomegaly. Wall thickening in the small bowel and proximal colon; could be related with portal hypertension versus infectious versus inflammatory enterocolitis. Patient to undergo paracentesis today Review of Systems Review of Systems: All systems reviewed & are unremarkable except as noted in Subjective Physical Exam Physical Exam: Constitutional: Awake alert oriented x 3. Respiratory: normal respiratory effort, lungs clear to auscultation, no wheeze, rales, rhonchi. Normal insp/exp effort, no accessory muscle use Cardiovascular: RRR, no murmur, no edema Vessels: no JVD or carotid bruit Abdomen: Tenderness in left lower quadrant and extending to right lower quadrant. Musculoskeletal: no cyanosis or clubbing, extremities motor strength 5/5 Skin: no rashes, warm and dry normal turgor Neurologic: PERRL, EOMI, accommodation nl, no face palsy, no dysarthria CN's II- XI intact bilaterally and moves all extremities Psychiatric: A+Ox3, euthymic affect Results & Data Results & Data Vital Signs (Past 12 Hours) Vital Signs Temp Pulse Pulse Resp BP Pulse Ox O2 Del Method 03/30/25 11:45 36.9 C 83 20 136/81 98 Room Air 03/30/25 07:54 36.7 C 73 20 127/81 98 Room Air 03/30/25 07:05 79 03/30/25 03:05 36.6 C 78 18 123/81 98 Room Air
[2025-03-30 13:14] LABS: Appearance Peritoneal Fluid Hazy; Color Peritoneal Fluid Pale Yellow; RBC Peritoneal Fluid Auto < 2000 /uL; WBC Peritoneal Fluid Auto 134 /ul (0-300)
--- NOTE | 2025-03-30 13:42 | Gastroenterology Progress Note ---
Date of Service March 30, 2025 Assessment & Plan (1) Abnormal CT scan, colon: Plan: -Plan to repeat colonoscopy--unclear if this colitis is infectious, inflammatory, or related to her liver disease. Given her ongoing pain, we will repeat this study. Clear liquids today, NPO after midnight, colonoscopy on 03/31. Bowel prep ordered. (2) Cirrhosis of liver with ascites: Plan: New CT finding on 03/29/25. She is arranged for paracentesis & fluid studies today. Will need to reschedule outpatient hepatology appointment. Discussed recommendation for alcohol cessation. Admission and Anticipated Discharge Date Admission Date: March 26, 2025 Supervising Physician Co-Signing Physician Notes I saw and examined this patient with our nurse practitioner and agree with her assessment and plan. Persistent abdominal pain. Imaging showed ascites likely portal colopathy and cirrhosis suspect related to alcohol. Recommend sending hepatitis viral serologies. In light of these findings and her small bowel and colon we will proceed with colonoscopy in a.m. to exclude any significant inflammatory process that could explain her symptoms. Subjective Patient is a 39 yo female with abdominal pain. Due to persistence of symptoms and rapid significant abdominal distention, a repeat CT scan was obtained on 03/29/25. This indicated new findings not previously detailed on her other CT scan. She was noted to have cirrhosis with evidence of portal hypertension/ascites, splenomegaly, and was noted to have persistence of colitis. This is a new finding since her colonoscopy recently. She notes persistence of abdominal pain. She was previously having diarrhea, but has not had a bowel movement since 03/27. A previous CT at [facility] reportedly showed hepatomegaly. She was scheduled with [facility] Hepatology but missed this appointment due to hospitalization. Review of Systems Gastrointestinal: no abdominal pain Physical Exam Constitutional: well developed Respiratory: normal respiratory effort Gastrointestinal (Abdomen): normal bowel sounds, soft, nontender, no hepatosplenomegaly Psychiatric: Orientation: alert and oriented x 3 Results & Data Results & Data Vital Signs (Past 12 Hours) Vital Signs Temp Pulse Pulse Resp BP Pulse Ox O2 Del Method 03/30/25 12:35 36.9 C 77 20 132/80 98 Room Air 03/30/25 12:20 36.8 C 79 18 135/84 98 Room Air 03/30/25 11:45 36.9 C 83 20 136/81 98 Room Air 03/30/25 07:54 36.7 C 73 20 127/81 98 Room Air 03/30/25 07:05 79 03/30/25 03:05 36.6 C 78 18 123/81 98 Room Air Laboratory Results Laboratory Results - last 48 hr 03/27/25 03/29/25 03/30/25 Unknown 07:54 07:19 WBC 5.53 4.02 L RBC 2.80 L 2.61 L Hgb 10.1 L 9.5 L Hct 30.5 L 28.0 L MCV 108.9 H 107.3 H MCH 36.1 H 36.4 H MCHC 33.1 33.9 RDW Std Deviation 64.9 H 64.6 H RDW Coeff of Romain 16.1 H 16.3 H Plt Count 105 L 103 L MPV 10.2 10.2 Immature Gran % (Auto) 0.2 0.5 Neut % (Auto) 63.5 60.9 Lymph % (Auto) 27.3 28.9 [place] % (Auto) 7.8 8.5 Eos % (Auto) 0.7 0.7 Baso % (Auto) 0.5 0.5 Neut # (Auto) 3.51 2.45 Lymph # (Auto) 1.51 1.16 L [place] # (Auto) 0.43 0.34 Eos # (Auto) 0.04 0.03 Baso # (Auto) 0.03 0.02 Immature Gran # (Auto) 0.01 0.02 PT 12.8 H INR 1.2 H Sodium 140 Potassium 3.1 L Chloride 112 H Carbon Dioxide 23 Anion Gap 5 BUN 5 L Creatinine 0.54 L Est Cr Clr Drug Dosing 152.7 eGFR 121.53 BUN/Creatinine Ratio 9.3 L Glucose 84 Calcium 7.7 L Fluid Neutrophils % Fluid Lymphocytes % Fluid Eosinophils % Fluid Meso/Macro/[place] % Fluid Comment Peritoneal Color Peritoneal Appearance Peritoneal WBC (Auto) Peritoneal RBC (Auto) Peritoneal Tot Protein Peritoneal Albumin U Codeine Confrm GC/MS NEGATIVE Ur Morphine (GC/MS) 764 H Ur Hydrocodone (GC/MS) NEGATIVE Ur Norhydrocodone NEGATIVE Ur Noroxycodone 633 H Urine Oxycodone (GC/MS) NEGATIVE U Oxymorphone GC/MS NEGATIVE Ur Hydromorphone (GC/MS) 568 H Drug Screen Comment SEE NOTE Hep Bs Antigen Hepatitis C Antibody 03/30/25 03/30/25 14:46 Unknown WBC RBC Hgb Hct MCV MCH MCHC RDW Std Deviation RDW Coeff of Romain Plt Count MPV Immature Gran % (Auto) Neut % (Auto) Lymph % (Auto) [place] % (Auto) Eos % (Auto) Baso % (Auto) Neut # (Auto) Lymph # (Auto) [place] # (Auto) Eos # (Auto) Baso # (Auto) Immature Gran # (Auto) PT INR Sodium Potassium Chloride Carbon Dioxide Anion Gap BUN Creatinine Est Cr Clr Drug Dosing eGFR BUN/Creatinine Ratio Glucose Calcium Fluid Neutrophils % 7 Fluid Lymphocytes % 13 Fluid Eosinophils % 2 Fluid Meso/Macro/[place] % 78 Fluid Comment Peritoneal Color Pale Yellow Peritoneal Appearance Hazy Peritoneal WBC (Auto) 134 Peritoneal RBC (Auto) < 2000 Peritoneal Tot Protein < 3.0 Peritoneal Albumin < 1.5 U Codeine Confrm GC/MS Ur Morphine (GC/MS) Ur Hydrocodone (GC/MS) Ur Norhydrocodone Ur Noroxycodone Urine Oxycodone (GC/MS) U Oxymorphone GC/MS Ur Hydromorphone (GC/MS) Drug Screen Comment Hep Bs Antigen Negative Hepatitis C Antibody Negative Diagnostic Findings Abdomen/Pelvis CT 03/29/25 20:00 Exam(s): CT ABDOMEN + PELVIS With Contrast IV Amt: 92ml optiray 320 EXAM: CT Abdomen and Pelvis With Intravenous Contrast CLINICAL HISTORY: Reason for exam: worsening abd pain. TECHNIQUE: Axial computed tomography images of the abdomen and pelvis with intravenous contrast. CTDI is 25.35 mGy and DLP is 1438.3 mGy-cm. Automated exposure control was utilized for the study. A dose lowering technique was utilized adhering to the principles of ALARA. CONTRAST: Patient received 92ml optiray 320 of IV contrast COMPARISON: 03/26/2025 FINDINGS: Lung bases: Unremarkable. ABDOMEN: Liver: Low-attenuation of the liver suggesting steatosis. Slight liver surface nodularity with widening of the fissures may represent cirrhotic change. Gallbladder and bile ducts: Cholecystectomy. No ductal dilation. Pancreas: Unremarkable. No mass. No ductal dilation. Spleen: Splenomegaly measuring 14 cm. Adrenals: Unremarkable. No mass. Kidneys and ureters: Unremarkable. No solid mass. No hydronephrosis. Stomach and bowel: Postoperative change of gastric bypass. No bowel obstruction. Nonspecific small bowel wall thickening and proximal colonic wall thickening. PELVIS: Appendix: Normal appendix. Bladder: Unremarkable. No mass. Reproductive: Unremarkable as visualized. ABDOMEN and PELVIS: Intraperitoneal space: Mild ascites. No free air. Bones/joints: No acute fracture. No dislocation. Soft tissues: Mesenteric edema. Vasculature: Patent portal vein. No aortic aneurysm. Lymph nodes: Unremarkable. No enlarged lymph nodes. IMPRESSION: 1. Query cirrhotic liver with portal hypertensive change including mild ascites and splenomegaly measuring 14 cm. 2. Wall thickening in the small bowel and proximal colon. This could reflect portal hypertensive change versus infectious or inflammatory enterocolitis. Correlate clinically. Electronically signed by: Maren Bravo M.D. 03/29/25 22:30 PM Paracentesis Ultrasound 03/30/25 08:00 ULTRASOUND-GUIDED PARACENTESIS CLINICAL HISTORY: Ascites PROCEDURE: Procedure and risks were explained. Informed consent was obtained. A final timeout was completed. The abdomen was prepped and draped in sterile fashion. 1% lidocaine was utilized for skin anesthesia. Utilizing ultrasound guidance, a 5 Setswana safety centesis catheter was advanced into the right lower quadrant pocket of ascites. Ultrasound images were obtained. 1 L of ascites fluid was removed and sent to the lab for analysis. The catheter was removed and Band-Aid applied. The patient tolerated the procedure well. Vital signs will be monitored postprocedure. IMPRESSION: Ultrasound-guided paracentesis as above. Performed, dictated, and signed by Hakeem Jean PA-C; to be co-signed by Liza Israel. Electronically signed by: Ricky Israel M.D. 03/30/2025 1:01 PM PG Care Time/CCT Total # of Minutes Spent Total Time Spent with Patient: Total time spent is greater than 50% in coordination of care (as documented) at patient's floor/unit and/or counseling patient: Coding Level of Care Code 66796 SUB INP/OBS CARE 3/50MIN Diagnoses Abnormal CT scan, colon R93.3 Cirrhosis of liver with ascites K74.60; R18.8
[2025-03-30 13:49] LABS: Eosinophils, Fluid 2 %; Lymphocytes, Fluid 13 %; Mono,Macrophage,Mesothelial 78 %; Neutrophils, Fluid 7 %
[2025-03-30 13:56] LABS: Albumin Peritoneal Fluid < 1.5 gm/dl
[2025-03-30 16:25] LABS: Hep B Surface Ag with confirm Negative (Negative)
[2025-03-30 16:30] LABS: Hep C Ab Rflx HepCQuant RNA Negative (Negative)
[2025-03-30] MEDS: POLYETHYLENE (MIRALAX) 17 GM PACK PO ONE (17:36)
[2025-03-31 07:37] VITALS: RESP 16
[2025-03-31 08:06] LABS: Anion Gap 6 (3-11); Blood Urea Nitrogen 3 mg/dl (6-23); Calcium 8.2 mg/dl (8.6-10.3); Carbon Dioxide 23 mmol/L (21-32); Chloride 110 mmol/L (98-107); Creatinine Clr Calc Pharmacy 244.2 ml/min; Glucose 81 mg/dl (70-99(Fasting)); Potassium 3.3 mmol/L (3.5-5.1); Sodium 139 mmol/L (136-145)
--- NOTE | 2025-03-31 09:31 | History & Physical Bridge Note ---
Date of Service March 31, 2025 History & Physical Bridge Note I have examined the patient, reviewed the History & Physical and in the interval since the performance of the History & Physical I have noted the following changes of clinical significance: no changes noted She is passing clear liquid stools at this point. She has not had anything by mouth since prior to midnight. Keep NPO for colonoscopy today. Supervising Physician Co-Signing Physician Notes I saw and examined this patient with our nurse practitioner and agree with her assessment and plan. Did well with the colon prep last night. Still with some lower abdominal discomfort. Will proceed with colonoscopy.
--- NOTE | 2025-03-31 12:27 | Hospitalist Progress Note ---
Date of Service March 31, 2025 Assessment & Plan (1) Nausea & vomiting: Plan: 39-year-old female with past medical history significant for polycystic ovaries, hypertension, GERD, iron deficiency anemia, depression with anxiety, history of Irene-en-Y gastric bypass, anastomotic ulcer status post gastric bypass presents with nausea vomiting and abdominal pain. Abdominal pain Nausea and vomiting Patient reports lower abdominal pain, nausea and vomiting for 2 weeks. Recently was at [facility] on 03/22;was prescribed Percocet for pain control CT abdomen and pelvis on admission shows possible proximal colitis. Diffuse liver steatosis Underwent endoscopy on 03/28no acute finding Patient had undergone GI workup with CT abdomen/pelvis endoscopy, colonoscopy in last 2 months without any finding that could explain her abdominal pain. She reports heavy menstrual bleed; had recently undergone pelvic ultrasound in January which showed" left lateral intramural uterine fibroid and heterogeneous myometrial echotexture with a somewhat striated appearance of the myometrium which may be seen in adenomyosis". Gynecology was consulted; recommended outpatient follow-up. Patient's abdominal pain continues to persist; CT abdomen pelvis was done on 03/29 which showed wall thickening in the small bowel/proximal colon, possible cirrhotic liver with portal hypertension along with mild ascites.Patient was started on ceftriaxone, Flagyl for possible infectious colitis. She underwent paracentesis on 03/30/2025 which ruled out SBP. CRP and ESR were within normal limit which did not suggest inflammatory process going on. Patient was started on Cymbalta for neuropathic pain as well as capsicin cream. Patient is being planned to undergo colonoscopy on 03/31. Chest pain likely GERD EKG on admission shows normal sinus rhythm; nonspecific T wave changes. CTA chest does not show PE High sensitive troponin negative Echocardiogram shows EF of 55 to 60%; no regional wall motion abnormality. Continue Protonix and carafate Hypokalemia- repleted Alcohol use disorder says quit about a week ago. Counseling as outpatient Thiamine, folic acid and multivitamin Monitor for withdrawal History of depression anxiety On xanax as needed Hypertension Metoprolol succinate,continue Gastric bypass surgery follow up with GI DVT prophylaxis SCDs for now Disposition Med/telemetry Full code. Please note the above document was generated using voice recognition software. It may contain grammatical, syntax or spelling errors. Any formal questions or concerns about the content, text or information contained within the body of this dictation should be directly addressed to the provider for clarification Admission and Anticipated Discharge Date Admission Date: March 26, 2025 Subjective Patient seen and examined at bedside. She reports that the pain is slightly better compared to on admission. Patient is planned for undergoing colonoscopy today by GI. Review of Systems Review of Systems: All systems reviewed & are unremarkable except as noted in Subjective Physical Exam Physical Exam: Constitutional: Awake alert oriented x 3. Respiratory: normal respiratory effort, lungs clear to auscultation, no wheeze, rales, rhonchi. Normal insp/exp effort, no accessory muscle use Cardiovascular: RRR, no murmur, no edema Vessels: no JVD or carotid bruit Abdomen: Tenderness in left lower quadrant and extending to right lower quadrant. Musculoskeletal: no cyanosis or clubbing, extremities motor strength 5/5 Skin: no rashes, warm and dry normal turgor Neurologic: PERRL, EOMI, accommodation nl, no face palsy, no dysarthria CN's II- XI intact bilaterally and moves all extremities Psychiatric: A+Ox3, euthymic affect Results & Data Results & Data Vital Signs (Past 12 Hours) Vital Signs Temp Pulse Pulse Resp BP BP Pulse Ox 03/31/25 10:32 36.9 C 80 16 145/95 H 96 03/31/25 07:53 66 03/31/25 07:37 36.8 C 72 16 132/75 94 03/31/25 03:24 36.4 C L 75 20 143/95 H 95 O2 Del Method 03/31/25 10:32 Room Air 03/31/25 07:53 03/31/25 07:37 Room Air 03/31/25 03:24 Room Air
--- NOTE | 2025-03-31 14:08 | GI REPORT ---
[facility] Patient: LISA KRUSE : 1985 Sex at : Female Age: 39 Years Procedure: Colonoscopy Date: 03/31/2025 Attending Physician: Dao Saldivar MD Referring MD: Paul Hernandez Md Indications: - Abnormal CT scan possible enterocolitis Medications: - Monitored Anesthesia Care Complications: - No immediate complications. Procedure: - Prior to the procedure, a History and Physical was performed, and patient medications and allergies were reviewed. The patient's tolerance of previous anesthesia was also reviewed. The risks and benefits of the procedure and the sedation options and risks were discussed with the patient. All questions were answered, and informed consent was obtained. [Anticoagulant Agents] [Days Prior to Procedure]. [ASA Grade]. After reviewing the risks and benefits, the patient was deemed in satisfactory condition to undergo the procedure. - The adult colonoscope was introduced through the anus and advanced to the terminal ileum, with identification of the appendiceal orifice and ileocecal valve. - The colonoscopy was performed without difficulty. - The patient tolerated the procedure well. - The quality of the bowel preparation was [Prep Quality]. - [Anatomical Structures] photographed. Findings: - The perianal and digital rectal examinations were normal. - The terminal ileum contained one sessile polyp. The polyp was diminutive (1-3 mm) in diameter. Biopsies were taken with a cold forceps for histology. - Mildly congested mucosa was found in the entire colon. Biopsies for histology were taken with a cold forceps for evaluation of microscopic colitis. - No other significant abnormalities were identified in a careful examination of the remainder of the colon. Impression: - One polyp in the terminal ileum. Biopsied. - Congested mucosa in the entire examined colon. Biopsied. Suspect portal colopathy. Recommendation: - Await pathology results. - Resume previous diet. - Patient has a contact number available for emergencies. The signs and symptoms of potential delayed complications were discussed with the patient. Return to normal activities tomorrow. Written discharge instructions were provided to the patient. Procedure Code(s): - 73129, Colonoscopy, flexible; with biopsy, single or multiple Diagnosis Code(s): - D13.39, Benign neoplasm of other parts of small intestine - K63.89, Other specified diseases of intestine CPT(R) - 2023 copyright [employer]. All Rights Reserved. The CPT codes, CCI edits and ICD codes generated are intended as suggestions and were generated based on input data. These codes are preliminary and upon news operations manager review may be revised to meet current compliance and payer requirements. The provider is responsible for the final determination of appropriate codes, and modifiers. Dao Saldivar MD This document has been electronically signed. Note Initiated:03/31/2025 Note Completed:03/31/2025 2:07 PM \\[email or web address]\Results\[email or web address]\[id number]
[2025-03-31] MEDS: PROPOFOL IV EMULSION 10 MG/ML 20 ML VIAL IV ONE ×3 (15:12)
[2025-03-31] MEDS: LIDOCAINE 2% 2 ML VIAL/AMP(20MG/ML) INFIL ONE (15:12)
--- NOTE | 2025-03-31 15:13 | Discharge Summary ---
Date of Service March 31, 2025 Admission HPI Per Admitting Provider 39-year-old female with past medical history significant for polycystic ovaries, hypertension, GERD, iron deficiency anemia, depression with anxiety, history of Irene-en-Y gastric bypass, anastomotic ulcer status post gastric bypass presents with nausea vomiting and abdominal pain. Patient states since about last 2 weeks she is having a lot of nausea and vomiting not able to keep anything down. Sometimes even could not keep her liquids down. Had some loose stools. Not micturating much because of not eating much. And couple of days ago start developing severe abdominal pain. She was in the [facility] on 03/22/2025 where her LFTs were elevated at AST 176, ALT 59. And she also drinks alcohol. Total bilirubin was 1.8. CT abdomen pelvis with contrast and ultrasound was done. Ultrasound revealed hepatic steatosis with hepatomegaly. CT scan read as possible sequelae of Crohn's disease but patient did not had any history of Crohn's disease. [facility] advised to stop drinking alcohol and to follow-up with GI. Her symptoms were not getting better. Today she was also developed some chest pain. Some tingliness in the middle of the chest going down into the torso and right leg which prompted her come to the ER. Also has weakness in legs. Has some dizziness. No headache. Has some sinus issues. Has some cough from sinuses. Sometimes getting short of breath. Currently resting comfortably and hemodynamics are okay.Patient says she is to drink 6-8 beers daily but stopped drinking about a week ago and is not having any withdrawal symptoms Past medical history. As mentioned above Past surgical history. Right carpal tunnel surgery. . Colonoscopy. D&C. EGD. Excision of excess of skin. Hemorrhoidectomy. Laparoscopic fulguration of oviducts. Laparoscopy of liver. Laparoscopic gastric restrictive Irene-en-Y bypass surgery. Nasal sinus endoscopy. Reduction mammoplasty. Tonsillectomy /adenoidectomy. Repair of nasal septum. Incision and drainage of left breast. Social history. . Smoked 0.3 pack a day for 9 years. Drinks alcohol. No drug use. Family history. Brother has asthma. Paternal grandfather had stomach cancer. Maternal grandmother had lung cancer. Paternal grandmother had lung cancer. Maternal grandfather had colon cancer. Father has diabetes. Mother has female dysphoric disorder. Principal Diagnosis Abdominal pain Portal colopathy Discharge Exam Constitutional: Awake alert oriented x 3. Respiratory: normal respiratory effort, lungs clear to auscultation, no wheeze, rales, rhonchi. Normal insp/exp effort, no accessory muscle use Cardiovascular: RRR, no murmur, no edema Vessels: no JVD or carotid bruit Abdomen: Tenderness in left lower quadrant and extending to right lower quadrant. Musculoskeletal: no cyanosis or clubbing, extremities motor strength 5/5 Skin: no rashes, warm and dry normal turgor Neurologic: PERRL, EOMI, accommodation nl, no face palsy, no dysarthria CN's II- XI intact bilaterally and moves all extremities Psychiatric: A+Ox3, euthymic affect Discharge Data Allergies Allergy/AdvReac Type Severity Reaction Status Date / Time metoclopramide [From Reglan] AdvReac Intermediate panic Unverified 11/22/24 16:25 attacks Consultations 03/26/25 19:36 ED Decision to Admit Stat 03/27/25 08:00 Consult Gastroenterology Routine 03/29/25 10:09 Consult Gynecology Routine Procedures Performed Operation Date: 03/31/25 16:55 Actual Procedures p Colonoscopy Biopsy Cytology - Dao Saldivar MD Ordered Studies 03/26/25 14:53 CT abd pelvis IV con only Stat CT angio chest PE protocol Stat CT head/brain wo con Stat 03/29/25 10:58 US pelvic complete Routine 03/29/25 20:00 CT Abd and Pelvis [CT abd pelvis IV con only] Stat 03/30/25 08:00 IR paracentesis abd w/img US Routine Hospital Course (1) Nausea & vomitin-year-old female with past medical history significant for polycystic ovaries, hypertension, GERD, iron deficiency anemia, depression with anxiety, history of Irene-en-Y gastric bypass, anastomotic ulcer status post gastric bypass presents with nausea vomiting and abdominal pain. Abdominal pain Nausea and vomiting Patient reports lower abdominal pain, nausea and vomiting for 2 weeks. Recently was at [facility] on 03/22;was prescribed Percocet for pain control CT abdomen and pelvis on admission shows possible proximal colitis. Diffuse liver steatosis Underwent endoscopy on 03/28no acute finding Patient had undergone GI workup with CT abdomen/pelvis endoscopy, colonoscopy in last 2 months without any finding that could explain her abdominal pain. She reports heavy menstrual bleed; had recently undergone pelvic ultrasound in January which showed" left lateral intramural uterine fibroid and heterogeneous myometrial echotexture with a somewhat striated appearance of the myometrium which may be seen in adenomyosis". Gynecology was consulted; recommended outpatient follow-up. Patient's abdominal pain continues to persist; CT abdomen pelvis was done on 03/29 which showed wall thickening in the small bowel/proximal colon, possible cirrhotic liver with portal hypertension along with mild ascites.Patient was started on ceftriaxone, Flagyl for possible infectious colitis. She underwent paracentesis on 03/30/2025 which ruled out SBP. CRP and ESR were within normal limit which did not suggest inflammatory process going on. Patient was started on Cymbalta for neuropathic pain as well as capsicin cream. Patient underwent colonoscopy on 03/31 which showed congested mucosa throughout the colon likely due to portal colopathy. Patient was recommended to maintain complete abstinence from alcohol use; she verbalized understanding. Biopsy of the colon needs to follow up with PCP. Please note the above document was generated using voice recognition software. It may contain grammatical, syntax or spelling errors. Any formal questions or concerns about the content, text or information contained within the body of this dictation should be directly addressed to the provider for clarification Total Time Total Time Spent Total Time Spent (In Minutes): 45 Total Time Includes: Examination of the Patient, Discharge Planning, Medication Reconciliation, Communication With Other Providers and Other Discharge Plan Discharge Items Patient Disposition: Home - Self-Care Reason For Visit: CHEST PAIN, ABDOMINAL PAIN, COLITIS Discharge Diagnosis: Abdominal pain Condition on Discharge: Fair Activity: Resume your previous activity Non-emergency contact: Primary Care Provider Call non-emergency contact if: you have any medication questions and your symptoms worsen Follow-up/Referrals: Brigitte Monteiro PA-C [Primary Care Provider] - 04/06/25 11:00 am (Date & Time 04/06/2025 11:00 AM Provider: Brigitte Monteiro PA-C [facility]) Diet: Regular Addtl Attending Provider Instructions: You were admitted in the hospital with abdominal pain. You underwent evaluation by GI and gynecology during the hospitalization. You underwent endoscopy/colonoscopy by GI. The CT of the abdomen showed enlargement of spleen, features of cirrhosis of the liver and possible colitis. The possible cause for the abdominal pain could be enlargement of the spleen/colitis/gynecological issue/neuropathic pain. You are prescribed Augmentin to be taken twice a day for 4 days to complete the antibiotic course for possible infectious cause of the colitis. You are prescribed Bentyl 10 mg 3 times a day for 7 days for spasmodic pain. You are prescribed Cymbalta 30 mg once a day for possible neuropathic pain. You are also prescribed capsaicin cream to be applied 3 times a day for abdominal pain. Please follow-up with gynecology as outpatient. Please follow-up with your primary care doctor. Please stop drinking Pending Studies at Discharge: Yes (coloscopy biopsy results) Stand-Alone Forms: [facility], Smoking Cessation Medications and DC Order Prescriptions: New dicyclomine 10 mg Capsule 10 mg PO TID 7 Days Qty: 21 0RF oxycodone 5 mg Tablet 5 mg PO Q4H PRN (Reason: pain) Qty: 15 0RF duloxetine 30 mg Capsule,Delayed Release(Dr/Ec) 30 mg PO QAM 30 Days Qty: 30 0RF Zostrix 0.033 % Cream 1 applic EXT TID 5 Days Qty: 56.6 0RF amoxicillin-pot clavulanate 875-125 mg tablet 1 tab PO BID 4 Days Qty: 8 0RF Continued multivitamin Tablet 1 tab PO DAILY sucralfate 1 gram tablet 1 g PO TID pantoprazole 20 mg tablet,delayed release (DR/EC) 20 mg PO DAILY alprazolam 0.25 mg tablet 0.25 mg PO DAILY PRN (Reason: Other) furosemide 20 mg tablet 20 mg PO DAILY PRN (Reason: Fluid Retention) metoprolol succinate 25 mg tablet extended release 24 hr 25 mg PO DAILY Discontinued lidocaine 5 % adhesive patch,medicated 1 patch TOP DAILY PRN (Reason: pain) Qty: 15 0RF Rx Instructions: leave on most painful area for 12 hrs Discharge Orders: Discharge Order (Routine); Ordered 03/31/25 Ordered By: Paul Plaza/Other Patient Handouts: Social Drinking vs Problem Drinking, Alcoholism Myths and Facts, Alcoholism: Getting Help Admission Data Admit Date/Time: 03/26/25 21:20 Attending Provider: Paul Hernandez Admit Provider: Devendra Esparza Primary Care Provider: Brigitte Monteiro Other Providers: Devendra Esparza; Mal Murray; Crystal Milligan Other Interventions: Discharge Summary Assessment (RN) Last Done: 03/31/25 16:20
[2025-03-31 15:34] VITALS: BP 126/83; PULSE 78; TEMP 97.9; O2SAT 99
--- NOTE | 2025-03-31 15:37 | Anesthesiology Progress Note ---
Date of Service March 31, 2025 Anesthesia Post Procedure Vital Signs Vital Signs: Temp Pulse Pulse Resp BP BP Pulse Ox 03/31/25 15:20 36.6 C 78 16 126/83 99 03/31/25 14:55 69 03/31/25 14:52 36.3 C L 65 16 144/90 H 97 03/31/25 14:28 64 16 153/98 H 96 03/31/25 14:05 81 16 127/82 95 03/31/25 13:24 36.7 C 78 16 149/104 H 100 03/31/25 10:32 36.9 C 80 16 145/95 H 96 03/31/25 07:53 66 03/31/25 07:37 36.8 C 72 16 132/75 94 03/31/25 03:24 36.4 C L 75 20 143/95 H 95 03/30/25 23:48 36.5 C 69 18 135/87 97 03/30/25 21:52 75 03/30/25 20:08 36.9 C 98 H 20 128/84 94 03/30/25 16:47 87 O2 Del Method 03/31/25 15:20 Room Air 03/31/25 14:55 03/31/25 14:52 Room Air 03/31/25 14:28 Room Air 03/31/25 14:05 Room Air 03/31/25 13:24 Room Air 03/31/25 10:32 Room Air 03/31/25 07:53 03/31/25 07:37 Room Air 03/31/25 03:24 Room Air 03/30/25 23:48 Room Air 03/30/25 21:52 03/30/25 20:08 Room Air 03/30/25 16:47 Pain Intensity Abdomen: Pain Intensity: 5 Transfer of Care Handoff Completed per policy Notes Mental Status: alert / awake / arousable and participated in evaluation Nausea / Vomiting: adequately controlled Pain: adequately controlled Airway Patency, RR, SpO2: stable & adequate BP & HR: stable & adequate Hydration State: stable & adequate Anesthetic Complications: no major complications apparent and Pt Satisfied with anesthetic care
[2025-04-05 00:12] LABS: Anti Mitochondrial Antibody NEGATIVE (NEGATIVE); Anti Nuclear Antibody Screen NEGATIVE (NEGATIVE); Hepatitis A Antibody IgM NON-REACTIVE (NON-REACTIVE); Hepatitis B Core Antibody IgM NON-REACTIVE (NON-REACTIVE)
== END 2025-03-31 17:15 | disposition home or self-care (01) | DRG 392 ==
LOC: ED 13:50 → INTOOBSV 21:20 → 2W 21:20